=== PATIENT | male | born 1975 | race Two or more races ===

== ENCOUNTER 2017-02-28 08:14 | Inpatient (IN) | payer SELFPAY ==
[2017-02-28] VITALS (12 sets, daily range): BP systolic 117–170; BP diastolic 80–100
[~2017-02-28] VITALS: Ht 165.1 cm; Wt 86.2 kg
--- NOTE | 2017-02-28 08:17 | PHYS DOC ---
Past Medical History Past Medical History: Other Additional Past Medical Histor: ETOH ABUSE Past Surgical History: Appendectomy Alcohol Use: Heavy Drug Use: None Adult General Chief Complaint Chief Complaint: ABDOMINAL PAIN HPI HPI Patient is a 42 year old male who presents with via vomiting and abdominal pain the last 24 hours. He states he is taking metformin and stopped taking approximately 15 days ago he started drinking. He is drinking about 18 beers a day for the last 2 weeks. He states yesterday he started having abdominal pain that feels just like his previous pancreatitis that has been diagnosed with 2. His last diagnosis was partially 6 months ago. He denies any blood in his vomit, he denies any diarrhea. States the pain is in his epigastric area and radiates around. He denies any chest pain or shortness of breath. Review of Systems Review of Systems Constitutional: Denies fever or chills [] Eyes: Denies change in visual acuity, redness, or eye pain [] HENT: Denies nasal congestion or sore throat [] Respiratory: Denies cough or shortness of breath [] Cardiovascular: No additional information not addressed in HPI [] GI: Denies bloody stools or diarrhea, positive for nausea vomiting abdominal pain : Denies dysuria or hematuria [] Musculoskeletal: Denies back pain or joint pain [] Integument: Denies rash or skin lesions [] Neurologic: Denies headache, focal weakness or sensory changes [] Endocrine: Denies polyuria or polydipsia [] Current Medications Current Medications Current Medications Medications (Trade) Dose Ordered Sig/[facility] Start Time Stop Time Status Last Admin Dose Admin Dextrose/Sodium Chloride 1,000 ml @ 250 mls/hr Q4H 02/28/17 13:30 Insulin Human Regular (Novolin R Iv Drip) 150 ml @ 7.484 mls/ hr 1X ONCE 02/28/17 10:30 03/01/17 06:32 Insulin Human Regular 150 unit/ Sodium Chloride 151.5 ml @ 0 mls/hr CONT PRN PRN 02/28/17 10:30 Morphine Sulfate 4 mg PRN Q15MIN PRN 02/28/17 08:30 03/01/17 08:29 02/28/17 10:20 4 MG Ondansetron HCl 4 mg 4 mg 1X ONCE 02/28/17 09:00 02/28/17 09:01 DC 02/28/17 08:42 4 MG Potassium Chloride 100 ml @ 100 mls/hr PRN Q1HR PRN 02/28/17 10:30 Sodium Chloride 1,000 ml @ 250 mls/hr Q4H 02/28/17 13:30 Allergies Allergies Allergies Coded Allergies Type Severity Reaction Last Updated Verified No Known Drug Allergies 05/30/16 No Physical Exam Physical Exam Constitutional: Well developed, well nourished, no acute distress, non-toxic appearance. [] HENT: Normocephalic, atraumatic, bilateral external ears normal, oropharynx moist, no oral exudates, nose normal. [] Eyes: PERRLA, EOMI, conjunctiva normal, no discharge. [] Neck: Normal range of motion, no tenderness, supple, no stridor. [] Cardiovascular:Heart rate regular rhythm, no murmur [] Lungs & Thorax: Bilateral breath sounds clear to auscultation [] Abdomen: Bowel sounds normal, soft, tender palpation in the epigastric and left upper quadrant, no guarding or rebound noted, no masses, no pulsatile masses. [ ] Skin: Warm, dry, no erythema, no rash. [] Back: No tenderness, no CVA tenderness. [] Extremities: No tenderness, no cyanosis, no clubbing, ROM intact, no edema. [] Neurologic: Alert and oriented X 3, normal motor function, normal sensory function, no focal deficits noted. [] Psychologic: Affect normal, judgement normal, mood normal. [] Current Patient Data Vital Signs Vital Signs Date Time Temp Pulse Resp B/P Pulse Ox O2 Delivery O2 Flow Rate FiO2 02/28/17 10:20 18 97 Room Air 02/28/17 08:25 97.5 125 155/97 97.5 Lab Values Laboratory Tests Test 02/28/17 08:25 02/28/17 08:40 02/28/17 09:45 02/28/17 10:55 Glucose (Fingerstick) 472mg/dL (70-99) H 378mg/dL (70-99) H White Blood Count 22.7x10^3/uL (4.0-11.0) H Red Blood Count 5.53x10^6/uL (4.30-5.70) Hemoglobin 16.0g/dL (13.0-17.5) Hematocrit 47.0% (39.0-53.0) Mean Corpuscular Volume 85fL (79-100) Mean Corpuscular Hemoglobin 29pg (25-35) Mean Corpuscular Hemoglobin Concent 34g/dL (31-37) Red Cell Distribution Width 14.0% (11.5-14.5) Platelet Count 222x10^3/uL (140-400) Neutrophils (%) (Auto) % (31-73) Lymphocytes (%) (Auto) % (24-48) Monocytes (%) (Auto) % (0-9) Eosinophils (%) (Auto) % (0-3) Basophils (%) (Auto) % (0-3) Neutrophils # (Auto) x10^3uL (1.8-7.7) Lymphocytes # (Auto) x10^3/uL (1.0-4.8) Monocytes # (Auto) x10^3/uL (0.0-1.1) Eosinophils # (Auto) x10^3/uL (0.0-0.7) Basophils # (Auto) x10^3/uL (0.0-0.2) Platelet Estimate Pending Prothrombin Time 14.0SEC (11.7-14.0) Prothrombin Time INR 1.2 (0.8-1.1) H PTT 33SEC (24-38) Sodium Level 121mmol/L (136-145) L Potassium Level 3.5mmol/L (3.5-5.1) Chloride Level 78mmol/L (98-107) L Carbon Dioxide Level 5mmol/L (21-32) *L Anion Gap 38 (6-14) H Blood Urea Nitrogen 14mg/dL (8-26) Creatinine 2.0mg/dL (0.7-1.3) H Estimated GFR (Cockcroft-Gault) 36.6 Glucose Level 583mg/dL (70-99) *H Calcium Level 7.4mg/dL (8.5-10.1) L Magnesium Level 2.4mg/dL (1.8-2.4) Total Bilirubin 1.2mg/dL (0.2-1.0) H Direct Bilirubin 0.1mg/dL (0.0-0.2) Aspartate Amino Transferase (AST) 47U/L (15-37) H Alanine Aminotransferase (ALT) 88U/L (16-63) H Alkaline Phosphatase 176U/L (46-116) H Creatine Kinase 138U/L (39-308) Creatine Kinase MB (Mass) 2.3ng/mL (0.0-3.6) Creatine Kinase MB Relative Index 1.7% (0-4) Troponin I Quantitative < 0.017ng/mL (0.000-0.055) Total Protein 8.8g/dL (6.4-8.2) H Albumin 3.4g/dL (3.4-5.0) Lipase 3871U/L (73-393) H Urine Collection Type Unknown Urine Color Yellow Urine Clarity Clear Urine pH 5.5 Urine Specific [place] >=1.030 Urine Protein >=300mg/dL (NEG-TRACE) Urine Glucose (UA) >=1000mg/dL (NEG) Urine Ketones (Stick) >=80mg/dL (NEG) Urine Blood Moderate (NEG) Urine Nitrite Negative (NEG) Urine Bilirubin Negative (NEG) Urine Urobilinogen Dipstick 0.2mg/dL (0.2 mg/dL) Urine Leukocyte Esterase Negative (NEG) Urine RBC 0/HPF (0-2) Urine WBC 0/HPF (0-4) Urine Squamous Epithelial Cells Few/LPF Urine Renal Epithelial Cells Few/LPF Urine Amorphous Sediment Present/HPF Urine Bacteria 0/HPF (0-FEW) Urine Hyaline Casts Occasional/HPF Urine Mucus Slight/LPF Laboratory Tests 02/28/17 08:40 Laboratory Tests 02/28/17 08:40 EKG EKG EKG shows sinus rate of [address] elevations or T-wave inversions, normal axis, QTC 429 ms, as interpreted by me. Radiology/Procedures Radiology/Procedures [facility] [address] [place] [address] IMAGING REPORT Signed PATIENT: MARGOTH SWAIN ACCOUNT: [id number] : 1975 LOCATION: ER AGE: 42 SEX: M EXAM STATUS: REG ER ORD. PHYSICIAN: ELIDA ARMENDARIZ MD REASON: abd pain PROCEDURE: ACUTE ABDOMEN SERIES Abdomen series with chest, 3 views, 02/28/2017: History: Nausea, vomiting, abdominal pain Gas is present in large and small bowel in a nonspecific pattern. No free air seen in the abdomen. There is no evidence of organomegaly. Mild spurring is present in the spine. There are punctate radiopacities projected over the perineal region. Correlation with an old CT study suggests that these are periurethral calcifications. The heart size is normal. The lungs are clear. There is no evidence of pleural fluid. IMPRESSION: No acute abdominal abnormality is detected. DICTATED and SIGNED BY: ADEEL ESQUIVEL MD DATE: 02/28/17919 CC: ELIDA ARMENDARIZ MD; NO PCP ~ Impressions: DKA Pancreatitis Alcohol abuse Course & Med Decision Making Course & Med Decision Making Pertinent Labs and Imaging studies reviewed. (See chart for details) She presented DKA with a pH of 7.04, PCO2 of 12 bicarbonate 3.3 on his ABG. He was given 2 L of normal saline in the DKA order set was started with IV insulin. He is being admitted to the ICU under Dr. valdez. He is in critical but stable condition at this time. Dr. valdez was informed of the patient's labs, ABG , vitals, patient being started on insulin and being admitted to the ICU. Dragon Disclaimer Dragon Disclaimer This electronic medical record was generated, in whole or in part, using a voice recognition dictation system. Departure Departure Impression: Primary Impression: DKA (diabetic ketoacidosis) Disposition: ADMITTED INPATIENT Admitting Physician: Serena Valdez Condition: CRITICAL Referrals: NO PCP (PCP) ELIDA ARMENDARIZ MD Feb 28, 2017 08:17
[2017-02-28] MEDS: MORPHINE SULFATE 4 MG/ML DISP.SYRIN. IV/SQ PRN ×5 (08:44→16:08)
[2017-02-28] MEDS ORDERED: IV NORMAL SALINE 1000ML BAG 1,000 ML IV ONE ×2 (08:45→09:00)
[2017-02-28 08:58] LABS: MEAN CORPUSCULAR VOLUME 85 fL (79-100); PLATELET COUNT 222 x10^3/uL (140-400); RED BLOOD COUNT 5.53 x10^6/uL (4.30-5.70); WHITE BLOOD COUNT 22.7 x10^3/uL (4.0-11.0)
[2017-02-28] MEDS ORDERED: ONDANSETRON PF 4 MG/2 ML VIAL. IV ONE (09:00)
[2017-02-28 09:04] LABS: INR 1.2 (0.8-1.1)
[2017-02-28 09:26] LABS: MEAN CORPUSCULAR HEMOGLOBIN 29 pg (25-35); MEAN CORPUSCULAR HGB CONC 34 g/dL (31-37)
--- NOTE | 2017-02-28 09:27 | RAD ---
Abdomen series with chest, 3 views, 02/28/2017: History: Nausea, vomiting, abdominal pain Gas is present in large and small bowel in a nonspecific pattern. No free air seen in the abdomen. There is no evidence of organomegaly. Mild spurring is present in the spine. There are punctate radiopacities projected over the perineal region. Correlation with an old CT study suggests that these are periurethral calcifications. The heart size is normal. The lungs are clear. There is no evidence of pleural fluid. IMPRESSION: No acute abdominal abnormality is detected.
[2017-02-28 09:35] LABS: CKMB INDEX 1.7 % (0-4); CKMB MASS 2.3 ng/mL (0.0-3.6)
[2017-02-28 09:52] LABS: TOTAL PROTEIN 8.8 g/dL (6.4-8.2)
[2017-02-28 10:11] LABS: GFR 36.6
[2017-02-28 10:27] LABS: ALBUMIN 3.4 g/dL (3.4-5.0); CALCIUM 7.4 mg/dL (8.5-10.1); POTASSIUM 3.5 mmol/L (3.5-5.1); TOTAL BILIRUBIN 1.2 mg/dL (0.2-1.0)
[2017-02-28 10:28] LABS: DIRECT BILIRUBIN 0.1 mg/dL (0.0-0.2)
[2017-02-28 10:28] LABS: BILIRUBIN,URINE NEGATIVE (NEG); GLUCOSE,URINE >=1000 mg/dL (NEG); NITRITE,URINE NEGATIVE (NEG); PH,URINE 5.5; PROTEIN,URINE >=300 mg/dL (NEG-TRACE); UROBILINOGEN,URINE 0.2 mg/dL (0.2 mg/dL)
[2017-02-28] MEDS ORDERED: POTASSIUM CHLORIDE 10MEQ 100 ML IV PRN ×3 (10:30)
[2017-02-28] MEDS ORDERED: INSULIN,REGULAR 150 UNIT DRIP 150 ML IV ONE (10:30)
[2017-02-28] MEDS ORDERED: IV NORMAL SALINE 1000ML BAG 1,000 ML IV SCH (10:30)
[2017-02-28] MEDS ORDERED: INSULIN REGULAR VIAL 150 UNIT in 0.9 % SODIUM CHLORIDE 150ML 150 ML IV PRN (10:30)
--- NOTE | 2017-02-28 10:31 | EKG ---
[facility] [address] [place] [address] Test Date: 2017-02-28 Test Time: 08:35:08 Pat Name: MARGOTH SWAIN Department: Room: Gender: [employer]: : 1975 Requested By: ELIDA ARMENDARIZ Order Number: [id number] Reading MD: Measurements Intervals Bailey Rate: 124 P: -103 NC: 128 QRS: -121 QRSD: 80 T: 54 QT: 296 QTc: 429 Interpretive Statements SUPRAVENTRICULAR RHYTHM ABNORMAL RIGHT SUPERIOR AXIS DEVIATION R-S TRANSITION ZONE IN V LEADS DISPLACED TO THE LEFT QRS(T) CONTOUR ABNORMALITY CONSISTENT WITH INFERIOR INFARCT POSSIBLY RECENT ABNORMAL ECG RI6.01 No previous ECG available for comparison
[2017-02-28 10:43] LABS: RBC,URINE 0 /HPF (0-2); WBC,URINE 0 /HPF (0-4)
[2017-02-28 10:44] LABS: BACTERIA,URINE 0 /HPF (0-FEW); SQUAMOUS EPITHELIAL CELL,UR FEW /LPF
[2017-02-28] MEDS: IV 1/2 NORMAL SALINE 1,000 ML IV SCH ×5 (11:30→21:30)
[2017-02-28 12:36] LABS: HCO3 ABG 3 mmol/L (21-28); PO2 ABG 121 mmHg (75-108); SAT O2 ABG 98 % (92-99)
[2017-02-28 12:38] LABS: PH ABG 7.05 (7.35-7.45)
[2017-02-28 12:39] LABS: FIO2 ABG 21; PCO2 ABG < 15 mmHg (35-46)
[2017-02-28 12:48] LABS: PLT ESTIMATE ADEQUATE (ADEQUATE)
[2017-02-28 13:16] LABS: CREATININE 1.5 mg/dL (0.7-1.3); GFR 51.1; MAGNESIUM 2.2 mg/dL (1.8-2.4); PHOSPHORUS 2.6 mg/dL (2.6-4.7)
[2017-02-28] MEDS: IV NORMAL SALINE 1000ML BAG 1,000 ML IV SCH ×3 (13:30→21:30)
[2017-02-28] MEDS: IV DEXTROSE 5 %-0.45 % NACL 1,000 ML IV SCH ×3 (13:30→21:35)
[2017-02-28] MEDS: MORPHINE SULFATE 4 MG/ML DISP.SYRIN. IV PRN ×4 (13:35→22:54)
[2017-02-28] MEDS ORDERED: LORAZEPAM 2 MG/ML VIAL. IV PRN (15:00)
[2017-02-28] MEDS ORDERED: DIAZEPAM 10 MG/2 ML DISP.SYRIN. IV PRN (15:00)
--- NOTE | 2017-02-28 15:02 | PDOC1 ---
History and Physical Date of Admission Date of Admission DATE: 02/28/17 TIME: 14:53 Identification/Chief Complaint Chief Complaint abd pain, nausea, Source Source: Caregiver, Chart review, Patient History of Present Illness History of Present Illness Mr. Jain is a 42 year old male admit w. vomiting and abdominal pain the last 24 hours. 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 He has not been taking his meds for DM, and has been drinking about 18 beers a day for the last 2 weeks. He and family state that acute abdominal pain worsened yesterday and feels like pancreatitis that has been diagnosed with 2. Pain 8.10 pain mid epigastrum to back Past Medical History Cardiovascular: HTN Psych: Anxiety, Addictions Endocrine: Diabetes Family History Family History: No Significant Social History ALCOHOL: heavy Drugs: None Current Problem List Problem List Problems Medical Problems: (1) DKA (diabetic ketoacidosis) Status: Acute Problems: Current Medications Current Medications Current Medications Morphine Sulfate 4 mg PRN Q15MIN PRN IV/SQ PAIN GREATER THAN 3/10 Last administered on 02/28/17 11:52; Start 02/28/17 at 08:30; Stop 03/01/17 at 08:29 Ondansetron HCl 4 mg 4 mg 1X ONCE IV Last administered on 02/28/17 08:42; Start 02/28/17 at 09:00; Stop 02/28/17 at 09:01; Status DC Sodium Chloride 1,000 ml @ 1,000 mls/hr 1X ONCE IV Last administered on 09:44; Start 02/28/17 at 09:00; Stop 02/28/17 at 09:59; Status DC Sodium Chloride 1,000 ml @ 1,000 mls/hr 1X ONCE IV Last administered on 08:42; Start 02/28/17 at 08:45; Stop 02/28/17 at 09:44; Status DC Sodium Chloride 1,000 ml @ 1,000 mls/hr Q1H IV Last administered on 02/28/17 11:12; Start 02/28/17 at 10:30; Stop 02/28/17 at 10:33; Status DC Sodium Chloride 1,000 ml @ 500 mls/hr Q2H IV ; Start 02/28/17 at 11:30; Stop 02/28/17 at 13:30; Status DC Sodium Chloride 1,000 ml @ 250 mls/hr Q4H IV ; Start 02/28/17 at 13:30 Sodium Chloride 1,000 ml @ 250 mls/hr Q4H IV ; Start 02/28/17 at 13:30 Dextrose/Sodium Chloride 1,000 ml @ 250 mls/hr Q4H IV ; Start 02/28/17 at 13:30 Insulin Human Regular 150 unit/ Sodium Chloride 151.5 ml @ 0 mls/hr CONT PRN PRN IV PER PROTOCOL; Start 02/28/17 at 10:30 Potassium Chloride 100 ml @ 100 mls/hr PRN Q1HR PRN IV SEE COMMENTS; Start 02/28/17 at 10:30 Potassium Chloride 100 ml @ 100 mls/hr PRN Q1HR PRN IV SEE COMMENTS; Start 02/28/17 at 10:30 Potassium Chloride 100 ml @ 100 mls/hr PRN Q1HR PRN IV SEE COMMENTS; Start 02/28/17 at 10:30 Insulin Human Regular (Novolin R Iv Drip) 150 ml @ 7.484 mls/ hr 1X ONCE IV Last administered on 02/28/17 11:11; Start 02/28/17 at 10:30; Stop 03/01/17 at 06: 32 Morphine Sulfate 4 mg PRN Q2HR PRN IV PAIN Last administered on 02/28/17 13:35 ; Start 02/28/17 at 12:00 Allergies Allergies: Coded Allergies: No Known Drug Allergies (Unverified , 05/30/16) ROS General: YES: Chills, Fatigue PSYCHOLOGICAL ROS: No: Anxiety, Behavioral Disorder, Concentration difficultie , Decreased libido, Depression, Disorientation, Hallucinations, Hostility, Irritablity, Memory difficulties, Mood Swings, Obsessive thoughts, Other, Physical abuse, Sexual abuse, Sleep disturbances, Suicidal ideation Respiratory: No: Cough, Hemoptysis, Orthopnea, Other, Pleuritic Pain, SOB with excertion, Shortness of breath, Sputum Changes, Stridor, Tachypnea, Wheezing Gastrointestinal: Yes Abdominal Pain, Yes Nausea Musculoskeletal: No Gait Disturbance, No Joint Pain, No Joint Stiffness, No Joint Swelling, No Muscle Pain, No Muscular Weakness, No Other, No Pain In:, No Swelling In: Neurological: No Behavorial Changes, No Bowel/Bladder ControlChng, No Confusion , No Dizziness, No Gait Disturbance, No Headaches, No Impaired Coord/balance, No Memory Loss, No Numbness/Tingling, No Other, No Seizures, No Speech Problems , No Tremors, No Visual Changes, No Weakness Skin: No Acne, No Dry Skin, No Eczema, No Hair Changes, No Lumps, No Mole Changes, No Mottling, No Nail Changes, No Other, No Pruritus, No Rash, No Skin Lesion Changes Physical Exam General: Alert, Oriented X3, moderate distress, severe distress HEENT: Atraumatic, PERRLA, EOMI, Other (dry) Lungs: Clear to auscultation Heart: S1S2, no murmurs Abdomen: Normal bowel sounds (very tender epigastrum), Soft Extremities: No clubbing, No edema, Normal pulses Skin: No breakdown Neuro: Normal speech, Sensation intact Psych/Mental Status: Other (distress, confused) Vitals Vitals Vital Signs Date Time Temp Pulse Resp B/P Pulse Ox O2 Delivery O2 Flow Rate FiO2 02/28/17 13:35 98 02/28/17 11:52 22 Room Air 02/28/17 11:50 122 149/87 02/28/17 08:25 97.5 97.5 Labs Labs Laboratory Tests Test 02/28/17 08:25 02/28/17 08:40 02/28/17 09:45 02/28/17 09:57 Glucose (Fingerstick) 472mg/dL (70-99) White Blood Count 22.7x10^3/uL (4.0-11.0) Red Blood Count 5.53x10^6/uL (4.30-5.70) Hemoglobin 16.0g/dL (13.0-17.5) Hematocrit 47.0% (39.0-53.0) Mean Corpuscular Volume 85fL (79-100) Mean Corpuscular Hemoglobin 29pg (25-35) Mean Corpuscular Hemoglobin Concent 34g/dL (31-37) Red Cell Distribution Width 14.0% (11.5-14.5) Platelet Count 222x10^3/uL (140-400) Neutrophils (%) (Auto) % (31-73) Lymphocytes (%) (Auto) % (24-48) Monocytes (%) (Auto) % (0-9) Eosinophils (%) (Auto) % (0-3) Basophils (%) (Auto) % (0-3) Neutrophils # (Auto) x10^3uL (1.8-7.7) Lymphocytes # (Auto) x10^3/uL (1.0-4.8) Monocytes # (Auto) x10^3/uL (0.0-1.1) Eosinophils # (Auto) x10^3/uL (0.0-0.7) Basophils # (Auto) x10^3/uL (0.0-0.2) Segmented Neutrophils % 54% (35-66) Band Neutrophils % 20% (0-9) Lymphocytes % 18% (24-48) Monocytes % 8% (0-10) Platelet Estimate Adequate (ADEQUATE) Giant Platelets Few Prothrombin Time 14.0SEC (11.7-14.0) Prothromb Time International Ratio 1.2 (0.8-1.1) Activated Partial Thromboplast Time 33SEC (24-38) Sodium Level 121mmol/L (136-145) Potassium Level 3.5mmol/L (3.5-5.1) Chloride Level 78mmol/L (98-107) Carbon Dioxide Level 5mmol/L (21-32) Anion Gap 38 (6-14) Blood Urea Nitrogen 14mg/dL (8-26) Creatinine 2.0mg/dL (0.7-1.3) Estimated GFR (Cockcroft-Gault) 36.6 Glucose Level 583mg/dL (70-99) Calcium Level 7.4mg/dL (8.5-10.1) Magnesium Level 2.4mg/dL (1.8-2.4) Total Bilirubin 1.2mg/dL (0.2-1.0) Direct Bilirubin 0.1mg/dL (0.0-0.2) Aspartate Amino Transf (AST/SGOT) 47U/L (15-37) Alanine Aminotransferase (ALT/SGPT) 88U/L (16-63) Alkaline Phosphatase 176U/L (46-116) Creatine Kinase 138U/L (39-308) Creatine Kinase MB (Mass) 2.3ng/mL (0.0-3.6) Creatine Kinase MB Relative Index 1.7% (0-4) Troponin I Quantitative < 0.017ng/mL (0.000-0.055) Total Protein 8.8g/dL (6.4-8.2) Albumin 3.4g/dL (3.4-5.0) Lipase 3871U/L (73-393) Urine Collection Type Unknown Urine Color Yellow Urine Clarity Clear Urine pH 5.5 Urine Specific [place] >=1.030 Urine Protein >=300mg/dL (NEG-TRACE) Urine Glucose (UA) >=1000mg/dL (NEG) Urine Ketones (Stick) >=80mg/dL (NEG) Urine Blood Moderate (NEG) Urine Nitrite Negative (NEG) Urine Bilirubin Negative (NEG) Urine Urobilinogen Dipstick 0.2mg/dL (0.2 mg/dL) Urine Leukocyte Esterase Negative (NEG) Urine RBC 0/HPF (0-2) Urine WBC 0/HPF (0-4) Urine Squamous Epithelial Cells Few/LPF Urine Renal Epithelial Cells Few/LPF Urine Amorphous Sediment Present/HPF Urine Bacteria 0/HPF (0-FEW) Urine Hyaline Casts Occasional/HPF Urine Mucus Slight/LPF O2 Saturation 98% (92-99) Arterial Blood pH 7.05 (7.35-7.45) Arterial Blood pCO2 at Patient Temp < 15mmHg (35-46) Arterial Blood pO2 at Patient Temp 121mmHg (75-108) Arterial Blood HCO3 3mmol/L (21-28) Arterial Blood Base Excess -25mmol/L (-3-3) FiO2 21 Test 02/28/17 10:55 02/28/17 12:15 02/28/17 12:25 02/28/17 13:22 Glucose (Fingerstick) 378mg/dL (70-99) 343mg/dL (70-99) 289mg/dL (70-99) Sodium Level 139mmol/L (136-145) Potassium Level 4.0mmol/L (3.5-5.1) Chloride Level 101mmol/L (98-107) Carbon Dioxide Level 8mmol/L (21-32) Anion Gap 30 (6-14) Blood Urea Nitrogen 14mg/dL (8-26) Creatinine 1.5mg/dL (0.7-1.3) Estimated GFR (Cockcroft-Gault) 51.1 Glucose Level 365mg/dL (70-99) Calcium Level 8.0mg/dL (8.5-10.1) Phosphorus Level 2.6mg/dL (2.6-4.7) Magnesium Level 2.2mg/dL (1.8-2.4) Laboratory Tests Test 02/28/17 08:25 02/28/17 08:40 02/28/17 09:45 02/28/17 09:57 Glucose (Fingerstick) 472mg/dL (70-99) White Blood Count 22.7x10^3/uL (4.0-11.0) Red Blood Count 5.53x10^6/uL (4.30-5.70) Hemoglobin 16.0g/dL (13.0-17.5) Hematocrit 47.0% (39.0-53.0) Mean Corpuscular Volume 85fL (79-100) Mean Corpuscular Hemoglobin 29pg (25-35) Mean Corpuscular Hemoglobin Concent 34g/dL (31-37) Red Cell Distribution Width 14.0% (11.5-14.5) Platelet Count 222x10^3/uL (140-400) Neutrophils (%) (Auto) % (31-73) Lymphocytes (%) (Auto) % (24-48) Monocytes (%) (Auto) % (0-9) Eosinophils (%) (Auto) % (0-3) Basophils (%) (Auto) % (0-3) Neutrophils # (Auto) x10^3uL (1.8-7.7) Lymphocytes # (Auto) x10^3/uL (1.0-4.8) Monocytes # (Auto) x10^3/uL (0.0-1.1) Eosinophils # (Auto) x10^3/uL (0.0-0.7) Basophils # (Auto) x10^3/uL (0.0-0.2) Segmented Neutrophils % 54% (35-66) Band Neutrophils % 20% (0-9) Lymphocytes % 18% (24-48) Monocytes % 8% (0-10) Platelet Estimate Adequate (ADEQUATE) Giant Platelets Few Prothrombin Time 14.0SEC (11.7-14.0) Prothromb Time International Ratio 1.2 (0.8-1.1) Activated Partial Thromboplast Time 33SEC (24-38) Sodium Level 121mmol/L (136-145) Potassium Level 3.5mmol/L (3.5-5.1) Chloride Level 78mmol/L (98-107) Carbon Dioxide Level 5mmol/L (21-32) Anion Gap 38 (6-14) Blood Urea Nitrogen 14mg/dL (8-26) Creatinine 2.0mg/dL (0.7-1.3) Estimated GFR (Cockcroft-Gault) 36.6 Glucose Level 583mg/dL (70-99) Calcium Level 7.4mg/dL (8.5-10.1) Magnesium Level 2.4mg/dL (1.8-2.4) Total Bilirubin 1.2mg/dL (0.2-1.0) Direct Bilirubin 0.1mg/dL (0.0-0.2) Aspartate Amino Transf (AST/SGOT) 47U/L (15-37) Alanine Aminotransferase (ALT/SGPT) 88U/L (16-63) Alkaline Phosphatase 176U/L (46-116) Creatine Kinase 138U/L (39-308) Creatine Kinase MB (Mass) 2.3ng/mL (0.0-3.6) Creatine Kinase MB Relative Index 1.7% (0-4) Troponin I Quantitative < 0.017ng/mL (0.000-0.055) Total Protein 8.8g/dL (6.4-8.2) Albumin 3.4g/dL (3.4-5.0) Lipase 3871U/L (73-393) Urine Collection Type Unknown Urine Color Yellow Urine Clarity Clear Urine pH 5.5 Urine Specific [place] >=1.030 Urine Protein >=300mg/dL (NEG-TRACE) Urine Glucose (UA) >=1000mg/dL (NEG) Urine Ketones (Stick) >=80mg/dL (NEG) Urine Blood Moderate (NEG) Urine Nitrite Negative (NEG) Urine Bilirubin Negative (NEG) Urine Urobilinogen Dipstick 0.2mg/dL (0.2 mg/dL) Urine Leukocyte Esterase Negative (NEG) Urine RBC 0/HPF (0-2) Urine WBC 0/HPF (0-4) Urine Squamous Epithelial Cells Few/LPF Urine Renal Epithelial Cells Few/LPF Urine Amorphous Sediment Present/HPF Urine Bacteria 0/HPF (0-FEW) Urine Hyaline Casts Occasional/HPF Urine Mucus Slight/LPF O2 Saturation 98% (92-99) Arterial Blood pH 7.05 (7.35-7.45) Arterial Blood pCO2 at Patient Temp < 15mmHg (35-46) Arterial Blood pO2 at Patient Temp 121mmHg (75-108) Arterial Blood HCO3 3mmol/L (21-28) Arterial Blood Base Excess -25mmol/L (-3-3) FiO2 21 Test 02/28/17 10:55 02/28/17 12:15 02/28/17 12:25 02/28/17 13:22 Glucose (Fingerstick) 378mg/dL (70-99) 343mg/dL (70-99) 289mg/dL (70-99) Sodium Level 139mmol/L (136-145) Potassium Level 4.0mmol/L (3.5-5.1) Chloride Level 101mmol/L (98-107) Carbon Dioxide Level 8mmol/L (21-32) Anion Gap 30 (6-14) Blood Urea Nitrogen 14mg/dL (8-26) Creatinine 1.5mg/dL (0.7-1.3) Estimated GFR (Cockcroft-Gault) 51.1 Glucose Level 365mg/dL (70-99) Calcium Level 8.0mg/dL (8.5-10.1) Phosphorus Level 2.6mg/dL (2.6-4.7) Magnesium Level 2.2mg/dL (1.8-2.4) VTE Prophylaxis Ordered VTE Prophylaxis Devices: No VTE Pharmacological Prophylaxi: Yes Assessment/Plan Assessment/Plan Acute alcoholic pancreatitis DKA EtOHism, banana bag and CIWS score and schedand PRN acute renal failure, vasomotor nephropathy noncompliance meds marked acidosis, anion gap, EtOH level pending ICU admit, 31 min STEWART BELL MD Feb 28, 2017 15:02
--- NOTE | 2017-02-28 15:58 | PDOC2 ---
GI CONSULT Reason For Consult: Pancreatitis HPI: HPI: History from chart, staff, family (son provides translation, and sister also present). Admitted through ER in [facility], additional h/o alcoholic pancreatitis w/ last episode within the past 6 months. At that time was evaluated at [facility] and had a CT scan which was apparently concerning for an ulcer. He was treated w/ a pill for 30 days (son thinks pantoprazole sounds familiar). EGD was recommended as an outpatient but he could not afford this (uninsured). Family denies reflux/heartburn but reports frequent bloating. Also takes a few Advil QD for body aches. After his last episode of pancreatitis, he stopped drinking for a few months but restarted two weeks ago. Has been drinking about 18 beers daily and also stopped taking his metformin. Had pancreatitis symptoms recur yesterday w/ epigastric pain radiating to his back associated w/ n/v. His has concern for hematemesis; she saw blood in his mouth and on his teeth overnight. No diarrhea, constipation, hematochezia, or melena. Labs: WBC 22.7, glucose 583, Cr 2 (now 1.5), bili 1.2, AST 57, ALT 88, Alk Phos 176, lipase 3871. Hgb and BUN WNL. Acute abd series unrevealing. PMH: PMH: HTN, DM, pancreatitis, appendectomy Social History: ALCOHOL: heavy (18 beers daily ([place] or [place])) Drugs: None ROS: Asleep during my interview - as per family: GEN: Denies fevers, chills, sweats CV: Denies chest pain RESP: Denies shortness of air, cough GI: Per HPI ENDO: Denies weight changes MSK: +bodyaches VItals: Vitals: Vital Signs Date Time Temp Pulse Resp B/P Pulse Ox O2 Delivery O2 Flow Rate FiO2 02/28/17 13:35 98 02/28/17 11:52 22 Room Air 02/28/17 11:50 122 149/87 02/28/17 08:25 97.5 97.5 Labs: Labs: Laboratory Tests Test 02/28/17 08:25 02/28/17 08:40 02/28/17 09:45 02/28/17 09:57 Glucose (Fingerstick) 472mg/dL (70-99) White Blood Count 22.7x10^3/uL (4.0-11.0) Red Blood Count 5.53x10^6/uL (4.30-5.70) Hemoglobin 16.0g/dL (13.0-17.5) Hematocrit 47.0% (39.0-53.0) Mean Corpuscular Volume 85fL (79-100) Mean Corpuscular Hemoglobin 29pg (25-35) Mean Corpuscular Hemoglobin Concent 34g/dL (31-37) Red Cell Distribution Width 14.0% (11.5-14.5) Platelet Count 222x10^3/uL (140-400) Neutrophils (%) (Auto) % (31-73) Lymphocytes (%) (Auto) % (24-48) Monocytes (%) (Auto) % (0-9) Eosinophils (%) (Auto) % (0-3) Basophils (%) (Auto) % (0-3) Neutrophils # (Auto) x10^3uL (1.8-7.7) Lymphocytes # (Auto) x10^3/uL (1.0-4.8) Monocytes # (Auto) x10^3/uL (0.0-1.1) Eosinophils # (Auto) x10^3/uL (0.0-0.7) Basophils # (Auto) x10^3/uL (0.0-0.2) Segmented Neutrophils % 54% (35-66) Band Neutrophils % 20% (0-9) Lymphocytes % 18% (24-48) Monocytes % 8% (0-10) Platelet Estimate Adequate (ADEQUATE) Giant Platelets Few Prothrombin Time 14.0SEC (11.7-14.0) Prothromb Time International Ratio 1.2 (0.8-1.1) Activated Partial Thromboplast Time 33SEC (24-38) Sodium Level 121mmol/L (136-145) Potassium Level 3.5mmol/L (3.5-5.1) Chloride Level 78mmol/L (98-107) Carbon Dioxide Level 5mmol/L (21-32) Anion Gap 38 (6-14) Blood Urea Nitrogen 14mg/dL (8-26) Creatinine 2.0mg/dL (0.7-1.3) Estimated GFR (Cockcroft-Gault) 36.6 Glucose Level 583mg/dL (70-99) Calcium Level 7.4mg/dL (8.5-10.1) Magnesium Level 2.4mg/dL (1.8-2.4) Total Bilirubin 1.2mg/dL (0.2-1.0) Direct Bilirubin 0.1mg/dL (0.0-0.2) Aspartate Amino Transf (AST/SGOT) 47U/L (15-37) Alanine Aminotransferase (ALT/SGPT) 88U/L (16-63) Alkaline Phosphatase 176U/L (46-116) Creatine Kinase 138U/L (39-308) Creatine Kinase MB (Mass) 2.3ng/mL (0.0-3.6) Creatine Kinase MB Relative Index 1.7% (0-4) Troponin I Quantitative < 0.017ng/mL (0.000-0.055) Total Protein 8.8g/dL (6.4-8.2) Albumin 3.4g/dL (3.4-5.0) Lipase 3871U/L (73-393) Urine Collection Type Unknown Urine Color Yellow Urine Clarity Clear Urine pH 5.5 Urine Specific [place] >=1.030 Urine Protein >=300mg/dL (NEG-TRACE) Urine Glucose (UA) >=1000mg/dL (NEG) Urine Ketones (Stick) >=80mg/dL (NEG) Urine Blood Moderate (NEG) Urine Nitrite Negative (NEG) Urine Bilirubin Negative (NEG) Urine Urobilinogen Dipstick 0.2mg/dL (0.2 mg/dL) Urine Leukocyte Esterase Negative (NEG) Urine RBC 0/HPF (0-2) Urine WBC 0/HPF (0-4) Urine Squamous Epithelial Cells Few/LPF Urine Renal Epithelial Cells Few/LPF Urine Amorphous Sediment Present/HPF Urine Bacteria 0/HPF (0-FEW) Urine Hyaline Casts Occasional/HPF Urine Mucus Slight/LPF O2 Saturation 98% (92-99) Arterial Blood pH 7.05 (7.35-7.45) Arterial Blood pCO2 at Patient Temp < 15mmHg (35-46) Arterial Blood pO2 at Patient Temp 121mmHg (75-108) Arterial Blood HCO3 3mmol/L (21-28) Arterial Blood Base Excess -25mmol/L (-3-3) FiO2 21 Test 02/28/17 10:55 02/28/17 12:15 02/28/17 12:25 02/28/17 13:22 Glucose (Fingerstick) 378mg/dL (70-99) 343mg/dL (70-99) 289mg/dL (70-99) Sodium Level 139mmol/L (136-145) Potassium Level 4.0mmol/L (3.5-5.1) Chloride Level 101mmol/L (98-107) Carbon Dioxide Level 8mmol/L (21-32) Anion Gap 30 (6-14) Blood Urea Nitrogen 14mg/dL (8-26) Creatinine 1.5mg/dL (0.7-1.3) Estimated GFR (Cockcroft-Gault) 51.1 Glucose Level 365mg/dL (70-99) Calcium Level 8.0mg/dL (8.5-10.1) Phosphorus Level 2.6mg/dL (2.6-4.7) Magnesium Level 2.2mg/dL (1.8-2.4) Allergies: Coded Allergies: No Known Drug Allergies (Unverified , 05/30/16) Medications: Current Medications Medications (Trade) Dose Ordered Sig/Wendy Route PRN Reason Start Time Stop Time Status Last Admin Dose Admin Morphine Sulfate 4 mg PRN Q15MIN PRN IV/SQ PAIN GREATER THAN 3/10 02/28/17 08:30 03/01/17 08:29 02/28/17 11:52 Ondansetron HCl 4 mg 4 mg 1X ONCE IV 02/28/17 09:00 02/28/17 09:01 DC 02/28/17 08:42 Sodium Chloride 1,000 ml @ 1,000 mls/hr 1X ONCE IV 02/28/17 09:00 02/28/17 09:59 DC 02/28/17 09:44 Sodium Chloride 1,000 ml @ 1,000 mls/hr 1X ONCE IV 02/28/17 08:45 02/28/17 09:44 DC 02/28/17 08:42 Sodium Chloride 1,000 ml @ 1,000 mls/hr Q1H IV 02/28/17 10:30 02/28/17 10:33 DC 02/28/17 11:12 Insulin Human Regular (Novolin R Iv Drip) 150 ml @ 7.484 mls/ hr 1X ONCE IV 02/28/17 10:30 03/01/17 06:32 02/28/17 11:11 Morphine Sulfate 4 mg PRN Q2HR PRN IV PAIN 02/28/17 12:00 02/28/17 13:35 Imaging: Imaging: Acute Abd Series IMPRESSION: No acute abdominal abnormality is detected. PE: GEN: NAD HEENT: atraumatic LUNGS: clear anteriorly HEART: tachycardic ABD: BS+, moans w/ palpation diffusely EXTREMITY: no edema SKIN: no rashes, no jaundice NEURO/PSYCH: asleep A/P: A/P: DKA -stopped metformin ~2 weeks ago Recurrent pancreatitis -family reports 3rd occurrence (last within 6 months at [place]) -related to alcohol -lipase 3871 Alcoholism -started drinking again 2 weeks ago, 18 beers daily Epigastric pain, n/v, bloating -?hematemesis ( reports seeing blood in his mouth) NSAID use, h/o abnormal CT abd -a few Advil daily for body aches -family reports previous CT concerning for PUD -could not afford EGD, seems took a PPI x 30 days CRC screen -average risk -- Will check CT A/P (w/o contrast w/ Cr 1.5). NPO. Will also add IV PPI. Needs abstinence from alcohol. RAYA CULLEN Feb 28, 2017 15:58
[2017-02-28] MEDS ORDERED: MULTIVIT INFUSN,ADULT 4,VIT K 10 ML, THIAMINE 100 MG, FOLIC ACID 1 MG in IV NORMAL SALI... IV ONE (16:00)
--- NOTE | 2017-02-28 17:18 | RAD ---
CT of the abdomen and pelvis without contrast, 02/28/2017: History: Alcoholic pancreatitis, elevated lipase level Noncontrast scans were obtained as requested. Comparison is made to a study from 06/01/2013. The unopacified liver is unremarkable. The gallbladder is distended. No radiopaque gallstones are seen. There is moderate streaky increased density in the peripancreatic fat extending into the mesentery and anterior pararenal spaces bilaterally. The appearance is that of inflammation due to acute pancreatitis. No well-defined discrete peripancreatic fluid collection is evident. The study is limited by the lack of IV or oral contrast material. The spleen is unremarkable. The unopacified kidneys show no abnormality. A [place] catheter is present in the urinary bladder. The bladder [place] are diffusely thickened, probably accentuated by its nondistended state. A few diverticula are present in the sigmoid colon. The large and small bowel loops are not dilated. The stomach is moderately distended with fluid. No free air is evident in the abdomen or pelvis. No significant ascites is delineated. IMPRESSION: 1. Extensive peripancreatic inflammation compatible with acute pancreatitis. 2. Moderate associated distention of the stomach with fluid. PQRS Compliance Statement: One or more of the following individualized dose reduction techniques were utilized for this examination: 1. Automated exposure control 2. Adjustment of the mA and/or kV according to patient size 3. Use of iterative reconstruction technique
[2017-02-28 18:01] LABS: CALCIUM 8.4 mg/dL (8.5-10.1); CREATININE 1.4 mg/dL (0.7-1.3); GFR 55.3; PHOSPHORUS 1.6 mg/dL (2.6-4.7); POTASSIUM 3.2 mmol/L (3.5-5.1)
[2017-02-28] MEDS: PANTOPRAZOLE IV PUSH 40 MG VIAL. IVP SCH (18:33)
[2017-02-28] MEDS ORDERED: SODIUM PHOSPHATE 20 MMOL in IV DEXTROSE 5% 250 ML IV PRN (19:30)
[2017-02-28] MEDS: POTASSIUM CHLORIDE 10MEQ 100 ML IV SCH ×4 (19:34→22:43)
[2017-02-28] MEDS ORDERED: METF10002 PO (20:36)
[2017-02-28] MEDS ORDERED: CAPT12.52 PO (20:38)
[2017-02-28] MEDS ORDERED: FAMO20TA5 PO (20:38)
[2017-02-28] MEDS ORDERED: ACETAMINOPHEN 500 MG TABLET PO PRN (20:45)
[2017-02-28] MEDS ORDERED: SODIUM BICARB ADULT 8.4% 50 MEQ/50 ML DISP.SYRIN. IV ONE (21:00)
[2017-02-28] MEDS: OCTREOTIDE 100 MCG/ML VIAL SQ SCH (21:34)
[2017-02-28] MEDS: ONDANSETRON PF 4 MG/2 ML VIAL. IV PRN (22:54)
[2017-03-01] VITALS (12 sets, daily range): BP systolic 106–128; BP diastolic 67–93
[2017-03-01] MEDS: IV 1/2 NORMAL SALINE 1,000 ML IV SCH ×2 (01:30→05:30)
[2017-03-01] MEDS: IV NORMAL SALINE 1000ML BAG 1,000 ML IV SCH ×4 (01:30→16:50)
[2017-03-01] MEDS: MORPHINE SULFATE 4 MG/ML DISP.SYRIN. IV PRN ×4 (01:32→18:28)
[2017-03-01 01:55] LABS: CREATININE 1.4 mg/dL (0.7-1.3); GFR 55.3
[2017-03-01 01:57] LABS: MAGNESIUM 1.6 mg/dL (1.8-2.4); PHOSPHORUS 0.6 mg/dL (2.6-4.7)
[2017-03-01] MEDS: IV DEXTROSE 5 %-0.45 % NACL 1,000 ML IV SCH ×2 (02:04→05:30)
[2017-03-01 02:07] LABS: POTASSIUM 2.4 mmol/L (3.5-5.1)
[2017-03-01] MEDS ORDERED: SODIUM PHOSPHATE 40 MMOL in IV NORMAL SALINE 500ML BAG 500 ML IV PRN (02:30)
[2017-03-01] MEDS: MAGNESIUM SULFATE 4GM 100 ML IV SCH ×2 (02:36→08:21)
[2017-03-01] MEDS: POTASSIUM CHLORIDE 10MEQ 100 ML IV SCH ×10 (02:39→14:45)
[2017-03-01 05:37] LABS: BASO % 0 % (0-3); EOS % 0 % (0-3); HEMATOCRIT 39.3 % (39.0-53.0); LYMPH # 0.8 x10^3/uL (1.0-4.8); LYMPH % 7 % (24-48); MEAN CORPUSCULAR VOLUME 82 fL (79-100); MONO % 5 % (0-9); NEUT % 87 % (31-73); PLATELET COUNT 135 x10^3/uL (140-400); RED BLOOD COUNT 4.83 x10^6/uL (4.30-5.70); RED CELL DISTRIBUTION WIDTH 13.3 % (11.5-14.5); WHITE BLOOD COUNT 11.1 x10^3/uL (4.0-11.0)
[2017-03-01] MEDS ORDERED: IV DEXTROSE 5% - 0.9 % NACL 1,000 ML IV SCH (05:45)
[2017-03-01 05:50] LABS: PROTHROMBIN TIME PATIENT 12.4 SEC (11.7-14.0)
[2017-03-01] MEDS: OCTREOTIDE 100 MCG/ML VIAL SQ SCH ×3 (05:58→21:45)
[2017-03-01 06:12] LABS: HEMOGLOBIN 13.1 g/dL (13.0-17.5); MEAN CORPUSCULAR HEMOGLOBIN 27 pg (25-35); MEAN CORPUSCULAR HGB CONC 33 g/dL (31-37)
[2017-03-01 06:15] LABS: PHOSPHORUS 1.1 mg/dL (2.6-4.7)
[2017-03-01 06:16] LABS: ALBUMIN 2.3 g/dL (3.4-5.0); ALBUMIN/GLOBULIN RATIO 0.6 (1.0-1.7); CREATININE 1.4 mg/dL (0.7-1.3); GFR 55.3; TOTAL BILIRUBIN 0.6 mg/dL (0.2-1.0); TOTAL PROTEIN 5.9 g/dL (6.4-8.2)
[2017-03-01 06:19] LABS: POTASSIUM 2.3 mmol/L (3.5-5.1)
[2017-03-01 06:37] LABS: PLT ESTIMATE ADEQUATE (ADEQUATE)
[2017-03-01] MEDS: THIAMINE 100 MG TABLET. PO SCH (08:20)
[2017-03-01] MEDS: PANTOPRAZOLE IV PUSH 40 MG VIAL. IVP SCH (08:20)
[2017-03-01] MEDS: MULTIVITAMIN with MINERAL TABLET. PO SCH (08:20)
[2017-03-01] MEDS: FOLIC ACID 1 MG TABLET. PO SCH (08:20)
--- NOTE | 2017-03-01 09:37 | PDOC ---
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 Thormbocytopenia mild GAp metabolic acidosis HYpokalemia with hypophosphatemia Abd pain History of Present Illness History of Present Illness GAp closed this AM only HAd to give bicarb last night bec of bicarb < 7, pH 7.0 though Still cont to have epigastric and back pains STill requiring high doses insulin, currently at 18mcgs per hr On D5 IVF at 250cc/hr Only on metformin at home SOme nausea but no emesis Looks uncomfortable MOrphine 4 mgs IV q2 not enough LIpase even higher today 4K from 3K on admission BIcarb only 15 still PLAn: WOULD CONTINUE iNSULIN gtt even if gap closed to aid in resolution of pancreatitis Keep NPO Keep in ICU Dc dextrose iVF, start NS at 150cc/hr instead Bicarb 50 meqs x 1 now PPI iV NAusea meds Replace Elytes STart K phosph IV (phosp markedly low) BMP in AM DVT prophy Rpt lipase flavio COunseled on his etoh FAmily at bedside COnt CIWA. banana bag HOld metformin for now Dw GI and [employer] CC 32 mins Vitals Vitals Vital Signs Date Time Temp Pulse Resp B/P Pulse Ox O2 Delivery O2 Flow Rate FiO2 03/01/17 08:20 95 Room Air 03/01/17 06:25 19 03/01/17 06:00 122 115/69 03/01/17 04:00 100.9 100.9 Physical Exam General: Alert, Oriented X3, moderate distress, severe distress Abdomen: Normal bowel sounds (very tender epigastrum), Soft Extremities: No clubbing, No edema, Normal pulses Skin: No breakdown Labs LABS Laboratory Tests Test 02/28/17 09:45 02/28/17 09:57 02/28/17 10:55 02/28/17 12:15 Urine Collection Type Unknown Urine Color Yellow Urine Clarity Clear Urine pH 5.5 Urine Specific Henefer >=1.030 Urine Protein >=300mg/dL (NEG-TRACE) Urine Glucose (UA) >=1000mg/dL (NEG) Urine Ketones (Stick) >=80mg/dL (NEG) Urine Blood Moderate (NEG) Urine Nitrite Negative (NEG) Urine Bilirubin Negative (NEG) Urine Urobilinogen Dipstick 0.2mg/dL (0.2 mg/dL) Urine Leukocyte Esterase Negative (NEG) Urine RBC 0/HPF (0-2) Urine WBC 0/HPF (0-4) Urine Squamous Epithelial Cells Few/LPF Urine Renal Epithelial Cells Few/LPF Urine Amorphous Sediment Present/HPF Urine Bacteria 0/HPF (0-FEW) Urine Hyaline Casts Occasional/HPF Urine Mucus Slight/LPF O2 Saturation 98% (92-99) Arterial Blood pH 7.05 (7.35-7.45) Arterial Blood pCO2 at Patient Temp < 15mmHg (35-46) Arterial Blood pO2 at Patient Temp 121mmHg (75-108) Arterial Blood HCO3 3mmol/L (21-28) Arterial Blood Base Excess -25mmol/L (-3-3) FiO2 21 Glucose (Fingerstick) 378mg/dL (70-99) 343mg/dL (70-99) Test 02/28/17 12:25 02/28/17 13:22 02/28/17 14:31 02/28/17 15:59 Sodium Level 139mmol/L (136-145) Potassium Level 4.0mmol/L (3.5-5.1) Chloride Level 101mmol/L (98-107) Carbon Dioxide Level 8mmol/L (21-32) Anion Gap 30 (6-14) Blood Urea Nitrogen 14mg/dL (8-26) Creatinine 1.5mg/dL (0.7-1.3) Estimated GFR (Cockcroft-Gault) 51.1 Glucose Level 365mg/dL (70-99) Calcium Level 8.0mg/dL (8.5-10.1) Phosphorus Level 2.6mg/dL (2.6-4.7) Magnesium Level 2.2mg/dL (1.8-2.4) Glucose (Fingerstick) 289mg/dL (70-99) 249mg/dL (70-99) 190mg/dL (70-99) Test 02/28/17 16:20 02/28/17 17:06 02/28/17 18:37 02/28/17 19:44 Sodium Level 139mmol/L (136-145) Potassium Level 3.2mmol/L (3.5-5.1) Chloride Level 103mmol/L (98-107) Carbon Dioxide Level 7mmol/L (21-32) Anion Gap 29 (6-14) Blood Urea Nitrogen 13mg/dL (8-26) Creatinine 1.4mg/dL (0.7-1.3) Estimated GFR (Cockcroft-Gault) 55.3 Glucose Level 210mg/dL (70-99) Calcium Level 8.4mg/dL (8.5-10.1) Phosphorus Level 1.6mg/dL (2.6-4.7) Magnesium Level 2.0mg/dL (1.8-2.4) Glucose (Fingerstick) 165mg/dL (70-99) 143mg/dL (70-99) 163mg/dL (70-99) Test 02/28/17 20:48 02/28/17 21:54 02/28/17 23:00 03/01/17 00:23 Glucose (Fingerstick) 202mg/dL (70-99) 217mg/dL (70-99) 208mg/dL (70-99) 203mg/dL (70-99) Test 03/01/17 01:00 03/01/17 01:27 03/01/17 02:36 03/01/17 03:43 Sodium Level 134mmol/L (136-145) Potassium Level 2.4mmol/L (3.5-5.1) Chloride Level 102mmol/L (98-107) Carbon Dioxide Level 12mmol/L (21-32) Anion Gap 20 (6-14) Blood Urea Nitrogen 9mg/dL (8-26) Creatinine 1.4mg/dL (0.7-1.3) Estimated GFR (Cockcroft-Gault) 55.3 Glucose Level 235mg/dL (70-99) Calcium Level 8.0mg/dL (8.5-10.1) Phosphorus Level 0.6mg/dL (2.6-4.7) Magnesium Level 1.6mg/dL (1.8-2.4) Glucose (Fingerstick) 215mg/dL (70-99) 191mg/dL (70-99) 199mg/dL (70-99) Test 03/01/17 04:46 03/01/17 05:00 03/01/17 05:50 Glucose (Fingerstick) 188mg/dL (70-99) 187mg/dL (70-99) White Blood Count 11.1x10^3/uL (4.0-11.0) Red Blood Count 4.83x10^6/uL (4.30-5.70) Hemoglobin 13.1g/dL (13.0-17.5) Hematocrit 39.3% (39.0-53.0) Mean Corpuscular Volume 82fL (79-100) Mean Corpuscular Hemoglobin 27pg (25-35) Mean Corpuscular Hemoglobin Concent 33g/dL (31-37) Red Cell Distribution Width 13.3% (11.5-14.5) Platelet Count 135x10^3/uL (140-400) Neutrophils (%) (Auto) 87% (31-73) Lymphocytes (%) (Auto) 7% (24-48) Monocytes (%) (Auto) 5% (0-9) Eosinophils (%) (Auto) 0% (0-3) Basophils (%) (Auto) 0% (0-3) Neutrophils # (Auto) 9.7x10^3uL (1.8-7.7) Lymphocytes # (Auto) 0.8x10^3/uL (1.0-4.8) Monocytes # (Auto) 0.6x10^3/uL (0.0-1.1) Eosinophils # (Auto) 0.0x10^3/uL (0.0-0.7) Basophils # (Auto) 0.0x10^3/uL (0.0-0.2) Segmented Neutrophils % 74% (35-66) Band Neutrophils % 18% (0-9) Lymphocytes % 6% (24-48) Monocytes % 2% (0-10) Platelet Estimate Adequate (ADEQUATE) Prothrombin Time 12.4SEC (11.7-14.0) Prothromb Time International Ratio 1.0 (0.8-1.1) Sodium Level 128mmol/L (136-145) Potassium Level 2.3mmol/L (3.5-5.1) Chloride Level 103mmol/L (98-107) Carbon Dioxide Level 15mmol/L (21-32) Anion Gap 10 (6-14) Blood Urea Nitrogen 8mg/dL (8-26) Creatinine 1.4mg/dL (0.7-1.3) Estimated GFR (Cockcroft-Gault) 55.3 BUN/Creatinine Ratio 6 (6-20) Glucose Level 207mg/dL (70-99) Calcium Level 8.0mg/dL (8.5-10.1) Phosphorus Level 1.1mg/dL (2.6-4.7) Magnesium Level 2.0mg/dL (1.8-2.4) Total Bilirubin 0.6mg/dL (0.2-1.0) Aspartate Amino Transf (AST/SGOT) 35U/L (15-37) Alanine Aminotransferase (ALT/SGPT) 41U/L (16-63) Alkaline Phosphatase 105U/L (46-116) Total Protein 5.9g/dL (6.4-8.2) Albumin 2.3g/dL (3.4-5.0) Albumin/Globulin Ratio 0.6 (1.0-1.7) Lipase 4174U/L (73-393) Review of Systems Review of Systems nausea, abd pain, no diarrhea or emesis Assessment and Plan Assessmemt and Plan Problems Medical Problems: (1) DKA (diabetic ketoacidosis) Status: Acute Problems: Comment Review of Relevant I have reviewed the following items sharla (where applicable) has been applied. Labs Laboratory Tests Test 02/28/17 08:25 02/28/17 08:40 02/28/17 09:45 02/28/17 09:57 Glucose (Fingerstick) 472mg/dL (70-99) White Blood Count 22.7x10^3/uL (4.0-11.0) Red Blood Count 5.53x10^6/uL (4.30-5.70) Hemoglobin 16.0g/dL (13.0-17.5) Hematocrit 47.0% (39.0-53.0) Mean Corpuscular Volume 85fL (79-100) Mean Corpuscular Hemoglobin 29pg (25-35) Mean Corpuscular Hemoglobin Concent 34g/dL (31-37) Red Cell Distribution Width 14.0% (11.5-14.5) Platelet Count 222x10^3/uL (140-400) Neutrophils (%) (Auto) % (31-73) Lymphocytes (%) (Auto) % (24-48) Monocytes (%) (Auto) % (0-9) Eosinophils (%) (Auto) % (0-3) Basophils (%) (Auto) % (0-3) Neutrophils # (Auto) x10^3uL (1.8-7.7) Lymphocytes # (Auto) x10^3/uL (1.0-4.8) Monocytes # (Auto) x10^3/uL (0.0-1.1) Eosinophils # (Auto) x10^3/uL (0.0-0.7) Basophils # (Auto) x10^3/uL (0.0-0.2) Segmented Neutrophils % 54% (35-66) Band Neutrophils % 20% (0-9) Lymphocytes % 18% (24-48) Monocytes % 8% (0-10) Platelet Estimate Adequate (ADEQUATE) Giant Platelets Few Prothrombin Time 14.0SEC (11.7-14.0) Prothromb Time International Ratio 1.2 (0.8-1.1) Activated Partial Thromboplast Time 33SEC (24-38) Sodium Level 121mmol/L (136-145) Potassium Level 3.5mmol/L (3.5-5.1) Chloride Level 78mmol/L (98-107) Carbon Dioxide Level 5mmol/L (21-32) Anion Gap 38 (6-14) Blood Urea Nitrogen 14mg/dL (8-26) Creatinine 2.0mg/dL (0.7-1.3) Estimated GFR (Cockcroft-Gault) 36.6 Glucose Level 583mg/dL (70-99) Calcium Level 7.4mg/dL (8.5-10.1) Magnesium Level 2.4mg/dL (1.8-2.4) Total Bilirubin 1.2mg/dL (0.2-1.0) Direct Bilirubin 0.1mg/dL (0.0-0.2) Aspartate Amino Transf (AST/SGOT) 47U/L (15-37) Alanine Aminotransferase (ALT/SGPT) 88U/L (16-63) Alkaline Phosphatase 176U/L (46-116) Creatine Kinase 138U/L (39-308) Creatine Kinase MB (Mass) 2.3ng/mL (0.0-3.6) Creatine Kinase MB Relative Index 1.7% (0-4) Troponin I Quantitative < 0.017ng/mL (0.000-0.055) Total Protein 8.8g/dL (6.4-8.2) Albumin 3.4g/dL (3.4-5.0) Lipase 3871U/L (73-393) Urine Collection Type Unknown Urine Color Yellow Urine Clarity Clear Urine pH 5.5 Urine Specific Henefer >=1.030 Urine Protein >=300mg/dL (NEG-TRACE) Urine Glucose (UA) >=1000mg/dL (NEG) Urine Ketones (Stick) >=80mg/dL (NEG) Urine Blood Moderate (NEG) Urine Nitrite Negative (NEG) Urine Bilirubin Negative (NEG) Urine Urobilinogen Dipstick 0.2mg/dL (0.2 mg/dL) Urine Leukocyte Esterase Negative (NEG) Urine RBC 0/HPF (0-2) Urine WBC 0/HPF (0-4) Urine Squamous Epithelial Cells Few/LPF Urine Renal Epithelial Cells Few/LPF Urine Amorphous Sediment Present/HPF Urine Bacteria 0/HPF (0-FEW) Urine Hyaline Casts Occasional/HPF Urine Mucus Slight/LPF O2 Saturation 98% (92-99) Arterial Blood pH 7.05 (7.35-7.45) Arterial Blood pCO2 at Patient Temp < 15mmHg (35-46) Arterial Blood pO2 at Patient Temp 121mmHg (75-108) Arterial Blood HCO3 3mmol/L (21-28) Arterial Blood Base Excess -25mmol/L (-3-3) FiO2 21 Test 02/28/17 10:55 02/28/17 12:15 02/28/17 12:25 02/28/17 13:22 Glucose (Fingerstick) 378mg/dL (70-99) 343mg/dL (70-99) 289mg/dL (70-99) Sodium Level 139mmol/L (136-145) Potassium Level 4.0mmol/L (3.5-5.1) Chloride Level 101mmol/L (98-107) Carbon Dioxide Level 8mmol/L (21-32) Anion Gap 30 (6-14) Blood Urea Nitrogen 14mg/dL (8-26) Creatinine 1.5mg/dL (0.7-1.3) Estimated GFR (Cockcroft-Gault) 51.1 Glucose Level 365mg/dL (70-99) Calcium Level 8.0mg/dL (8.5-10.1) Phosphorus Level 2.6mg/dL (2.6-4.7) Magnesium Level 2.2mg/dL (1.8-2.4) Test 02/28/17 14:31 02/28/17 15:59 02/28/17 16:20 02/28/17 17:06 Glucose (Fingerstick) 249mg/dL (70-99) 190mg/dL (70-99) 165mg/dL (70-99) Sodium Level 139mmol/L (136-145) Potassium Level 3.2mmol/L (3.5-5.1) Chloride Level 103mmol/L (98-107) Carbon Dioxide Level 7mmol/L (21-32) Anion Gap 29 (6-14) Blood Urea Nitrogen 13mg/dL (8-26) Creatinine 1.4mg/dL (0.7-1.3) Estimated GFR (Cockcroft-Gault) 55.3 Glucose Level 210mg/dL (70-99) Calcium Level 8.4mg/dL (8.5-10.1) Phosphorus Level 1.6mg/dL (2.6-4.7) Magnesium Level 2.0mg/dL (1.8-2.4) Test 02/28/17 18:37 02/28/17 19:44 02/28/17 20:48 02/28/17 21:54 Glucose (Fingerstick) 143mg/dL (70-99) 163mg/dL (70-99) 202mg/dL (70-99) 217mg/dL (70-99) Test 02/28/17 23:00 03/01/17 00:23 03/01/17 01:00 03/01/17 01:27 Glucose (Fingerstick) 208mg/dL (70-99) 203mg/dL (70-99) 215mg/dL (70-99) Sodium Level 134mmol/L (136-145) Potassium Level 2.4mmol/L (3.5-5.1) Chloride Level 102mmol/L (98-107) Carbon Dioxide Level 12mmol/L (21-32) Anion Gap 20 (6-14) Blood Urea Nitrogen 9mg/dL (8-26) Creatinine 1.4mg/dL (0.7-1.3) Estimated GFR (Cockcroft-Gault) 55.3 Glucose Level 235mg/dL (70-99) Calcium Level 8.0mg/dL (8.5-10.1) Phosphorus Level 0.6mg/dL (2.6-4.7) Magnesium Level 1.6mg/dL (1.8-2.4) Test 03/01/17 02:36 03/01/17 03:43 03/01/17 04:46 03/01/17 05:00 Glucose (Fingerstick) 191mg/dL (70-99) 199mg/dL (70-99) 188mg/dL (70-99) White Blood Count 11.1x10^3/uL (4.0-11.0) Red Blood Count 4.83x10^6/uL (4.30-5.70) Hemoglobin 13.1g/dL (13.0-17.5) Hematocrit 39.3% (39.0-53.0) Mean Corpuscular Volume 82fL (79-100) Mean Corpuscular Hemoglobin 27pg (25-35) Mean Corpuscular Hemoglobin Concent 33g/dL (31-37) Red Cell Distribution Width 13.3% (11.5-14.5) Platelet Count 135x10^3/uL (140-400) Neutrophils (%) (Auto) 87% (31-73) Lymphocytes (%) (Auto) 7% (24-48) Monocytes (%) (Auto) 5% (0-9) Eosinophils (%) (Auto) 0% (0-3) Basophils (%) (Auto) 0% (0-3) Neutrophils # (Auto) 9.7x10^3uL (1.8-7.7) Lymphocytes # (Auto) 0.8x10^3/uL (1.0-4.8) Monocytes # (Auto) 0.6x10^3/uL (0.0-1.1) Eosinophils # (Auto) 0.0x10^3/uL (0.0-0.7) Basophils # (Auto) 0.0x10^3/uL (0.0-0.2) Segmented Neutrophils % 74% (35-66) Band Neutrophils % 18% (0-9) Lymphocytes % 6% (24-48) Monocytes % 2% (0-10) Platelet Estimate Adequate (ADEQUATE) Prothrombin Time 12.4SEC (11.7-14.0) Prothromb Time International Ratio 1.0 (0.8-1.1) Sodium Level 128mmol/L (136-145) Potassium Level 2.3mmol/L (3.5-5.1) Chloride Level 103mmol/L (98-107) Carbon Dioxide Level 15mmol/L (21-32) Anion Gap 10 (6-14) Blood Urea Nitrogen 8mg/dL (8-26) Creatinine 1.4mg/dL (0.7-1.3) Estimated GFR (Cockcroft-Gault) 55.3 BUN/Creatinine Ratio 6 (6-20) Glucose Level 207mg/dL (70-99) Calcium Level 8.0mg/dL (8.5-10.1) Phosphorus Level 1.1mg/dL (2.6-4.7) Magnesium Level 2.0mg/dL (1.8-2.4) Total Bilirubin 0.6mg/dL (0.2-1.0) Aspartate Amino Transf (AST/SGOT) 35U/L (15-37) Alanine Aminotransferase (ALT/SGPT) 41U/L (16-63) Alkaline Phosphatase 105U/L (46-116) Total Protein 5.9g/dL (6.4-8.2) Albumin 2.3g/dL (3.4-5.0) Albumin/Globulin Ratio 0.6 (1.0-1.7) Lipase 4174U/L (73-393) Test 03/01/17 05:50 Glucose (Fingerstick) 187mg/dL (70-99) Laboratory Tests Test 02/28/17 09:45 02/28/17 09:57 02/28/17 10:55 02/28/17 12:15 Urine Collection Type Unknown Urine Color Yellow Urine Clarity Clear Urine pH 5.5 Urine Specific Henefer >=1.030 Urine Protein >=300mg/dL (NEG-TRACE) Urine Glucose (UA) >=1000mg/dL (NEG) Urine Ketones (Stick) >=80mg/dL (NEG) Urine Blood Moderate (NEG) Urine Nitrite Negative (NEG) Urine Bilirubin Negative (NEG) Urine Urobilinogen Dipstick 0.2mg/dL (0.2 mg/dL) Urine Leukocyte Esterase Negative (NEG) Urine RBC 0/HPF (0-2) Urine WBC 0/HPF (0-4) Urine Squamous Epithelial Cells Few/LPF Urine Renal Epithelial Cells Few/LPF Urine Amorphous Sediment Present/HPF Urine Bacteria 0/HPF (0-FEW) Urine Hyaline Casts Occasional/HPF Urine Mucus Slight/LPF O2 Saturation 98% (92-99) Arterial Blood pH 7.05 (7.35-7.45) Arterial Blood pCO2 at Patient Temp < 15mmHg (35-46) Arterial Blood pO2 at Patient Temp 121mmHg (75-108) Arterial Blood HCO3 3mmol/L (21-28) Arterial Blood Base Excess -25mmol/L (-3-3) FiO2 21 Glucose (Fingerstick) 378mg/dL (70-99) 343mg/dL (70-99) Test 02/28/17 12:25 02/28/17 13:22 02/28/17 14:31 02/28/17 15:59 Sodium Level 139mmol/L (136-145) Potassium Level 4.0mmol/L (3.5-5.1) Chloride Level 101mmol/L (98-107) Carbon Dioxide Level 8mmol/L (21-32) Anion Gap 30 (6-14) Blood Urea Nitrogen 14mg/dL (8-26) Creatinine 1.5mg/dL (0.7-1.3) Estimated GFR (Cockcroft-Gault) 51.1 Glucose Level 365mg/dL (70-99) Calcium Level 8.0mg/dL (8.5-10.1) Phosphorus Level 2.6mg/dL (2.6-4.7) Magnesium Level 2.2mg/dL (1.8-2.4) Glucose (Fingerstick) 289mg/dL (70-99) 249mg/dL (70-99) 190mg/dL (70-99) Test 02/28/17 16:20 02/28/17 17:06 02/28/17 18:37 02/28/17 19:44 Sodium Level 139mmol/L (136-145) Potassium Level 3.2mmol/L (3.5-5.1) Chloride Level 103mmol/L (98-107) Carbon Dioxide Level 7mmol/L (21-32) Anion Gap 29 (6-14) Blood Urea Nitrogen 13mg/dL (8-26) Creatinine 1.4mg/dL (0.7-1.3) Estimated GFR (Cockcroft-Gault) 55.3 Glucose Level 210mg/dL (70-99) Calcium Level 8.4mg/dL (8.5-10.1) Phosphorus Level 1.6mg/dL (2.6-4.7) Magnesium Level 2.0mg/dL (1.8-2.4) Glucose (Fingerstick) 165mg/dL (70-99) 143mg/dL (70-99) 163mg/dL (70-99) Test 02/28/17 20:48 02/28/17 21:54 02/28/17 23:00 03/01/17 00:23 Glucose (Fingerstick) 202mg/dL (70-99) 217mg/dL (70-99) 208mg/dL (70-99) 203mg/dL (70-99) Test 03/01/17 01:00 03/01/17 01:27 03/01/17 02:36 03/01/17 03:43 Sodium Level 134mmol/L (136-145) Potassium Level 2.4mmol/L (3.5-5.1) Chloride Level 102mmol/L (98-107) Carbon Dioxide Level 12mmol/L (21-32) Anion Gap 20 (6-14) Blood Urea Nitrogen 9mg/dL (8-26) Creatinine 1.4mg/dL (0.7-1.3) Estimated GFR (Cockcroft-Gault) 55.3 Glucose Level 235mg/dL (70-99) Calcium Level 8.0mg/dL (8.5-10.1) Phosphorus Level 0.6mg/dL (2.6-4.7) Magnesium Level 1.6mg/dL (1.8-2.4) Glucose (Fingerstick) 215mg/dL (70-99) 191mg/dL (70-99) 199mg/dL (70-99) Test 03/01/17 04:46 03/01/17 05:00 03/01/17 05:50 Glucose (Fingerstick) 188mg/dL (70-99) 187mg/dL (70-99) White Blood Count 11.1x10^3/uL (4.0-11.0) Red Blood Count 4.83x10^6/uL (4.30-5.70) Hemoglobin 13.1g/dL (13.0-17.5) Hematocrit 39.3% (39.0-53.0) Mean Corpuscular Volume 82fL (79-100) Mean Corpuscular Hemoglobin 27pg (25-35) Mean Corpuscular Hemoglobin Concent 33g/dL (31-37) Red Cell Distribution Width 13.3% (11.5-14.5) Platelet Count 135x10^3/uL (140-400) Neutrophils (%) (Auto) 87% (31-73) Lymphocytes (%) (Auto) 7% (24-48) Monocytes (%) (Auto) 5% (0-9) Eosinophils (%) (Auto) 0% (0-3) Basophils (%) (Auto) 0% (0-3) Neutrophils # (Auto) 9.7x10^3uL (1.8-7.7) Lymphocytes # (Auto) 0.8x10^3/uL (1.0-4.8) Monocytes # (Auto) 0.6x10^3/uL (0.0-1.1) Eosinophils # (Auto) 0.0x10^3/uL (0.0-0.7) Basophils # (Auto) 0.0x10^3/uL (0.0-0.2) Segmented Neutrophils % 74% (35-66) Band Neutrophils % 18% (0-9) Lymphocytes % 6% (24-48) Monocytes % 2% (0-10) Platelet Estimate Adequate (ADEQUATE) Prothrombin Time 12.4SEC (11.7-14.0) Prothromb Time International Ratio 1.0 (0.8-1.1) Sodium Level 128mmol/L (136-145) Potassium Level 2.3mmol/L (3.5-5.1) Chloride Level 103mmol/L (98-107) Carbon Dioxide Level 15mmol/L (21-32) Anion Gap 10 (6-14) Blood Urea Nitrogen 8mg/dL (8-26) Creatinine 1.4mg/dL (0.7-1.3) Estimated GFR (Cockcroft-Gault) 55.3 BUN/Creatinine Ratio 6 (6-20) Glucose Level 207mg/dL (70-99) Calcium Level 8.0mg/dL (8.5-10.1) Phosphorus Level 1.1mg/dL (2.6-4.7) Magnesium Level 2.0mg/dL (1.8-2.4) Total Bilirubin 0.6mg/dL (0.2-1.0) Aspartate Amino Transf (AST/SGOT) 35U/L (15-37) Alanine Aminotransferase (ALT/SGPT) 41U/L (16-63) Alkaline Phosphatase 105U/L (46-116) Total Protein 5.9g/dL (6.4-8.2) Albumin 2.3g/dL (3.4-5.0) Albumin/Globulin Ratio 0.6 (1.0-1.7) Lipase 4174U/L (73-393) Medications Current Medications Morphine Sulfate 4 mg PRN Q15MIN PRN IV/SQ PAIN GREATER THAN 3/10 Last administered on 02/28/17 16:08; Start 02/28/17 at 08:30; Stop 02/28/17 at 16:29; Status DC Ondansetron HCl 4 mg 4 mg 1X ONCE IV Last administered on 02/28/17 08:42; Start 02/28/17 at 09:00; Stop 02/28/17 at 09:01; Status DC Sodium Chloride 1,000 ml @ 1,000 mls/hr 1X ONCE IV Last administered on 09:44; Start 02/28/17 at 09:00; Stop 02/28/17 at 09:59; Status DC Sodium Chloride 1,000 ml @ 1,000 mls/hr 1X ONCE IV Last administered on 08:42; Start 02/28/17 at 08:45; Stop 02/28/17 at 09:44; Status DC Sodium Chloride 1,000 ml @ 1,000 mls/hr Q1H IV Last administered on 02/28/17 11:12; Start 02/28/17 at 10:30; Stop 02/28/17 at 10:33; Status DC Sodium Chloride 1,000 ml @ 500 mls/hr Q2H IV ; Start 02/28/17 at 11:30; Stop 02/28/17 at 13:30; Status DC Sodium Chloride 1,000 ml @ 150 mls/hr Q6H40M IV ; Start 02/28/17 at 13:30 Sodium Chloride 1,000 ml @ 250 mls/hr Q4H IV ; Start 02/28/17 at 13:30; Stop 03/01/17 at 08:30; Status DC Dextrose/Sodium Chloride 1,000 ml @ 250 mls/hr Q4H IV Last administered on 03/01 02:04; Start 02/28/17 at 13:30; Stop 03/01/17 at 08:30; Status DC Insulin Human Regular 150 unit/ Sodium Chloride 151.5 ml @ 0 mls/hr CONT PRN PRN IV PER PROTOCOL Last administered on 02/28/17 22:49; Start 02/28/17 at 10:30 ; Stop 03/01/17 at 08:30; Status DC Potassium Chloride 100 ml @ 100 mls/hr PRN Q1HR PRN IV SEE COMMENTS; Start 02/28/17 at 10:30 Potassium Chloride 100 ml @ 100 mls/hr PRN Q1HR PRN IV SEE COMMENTS; Start 02/28/17 at 10:30 Potassium Chloride 100 ml @ 100 mls/hr PRN Q1HR PRN IV SEE COMMENTS; Start 02/28/17 at 10:30 Insulin Human Regular (Novolin R Iv Drip) 150 ml @ 7.484 mls/ hr 1X ONCE IV Last administered on 02/28/17 11:11; Start 02/28/17 at 10:30; Stop 03/01/17 at 06: 32; Status DC Morphine Sulfate 4 mg 4 mg PRN Q2HR PRN IV PAIN Last administered on 03/01/17 08:20; Start 02/28/17 at 12:00 Multivitamins/ Thiamine HCl/ Folic Acid/Sodium Chloride (Infuvite Adult/ Iv Sodium Chloride 0.9% 1000ml Bag) 1,011.2 ml @ 100 mls/ hr 1X ONCE IV Last administered on 02/28/17 16:13; Start 02/28/17 at 16:00; Stop 03/01/17 at 02:06; Status DC Multivitamins (Thera M Plus) 1 tab DAILY PO Last administered on 03/01/17 08:20 ; Start 03/01/17 at 09:00 Folic Acid (Folic Acid) 1 mg DAILY PO Last administered on 03/01/17 08:20; Start 03/01/17 at 09:00 Lorazepam (Ativan) 2 mg PRN Q1HR PRN IV For CIWA 8-14; Start 02/28/17 at 15:00 Lorazepam (Ativan) 4 mg PRN Q1HR PRN IV For CIWA 15 or greater; Start 02/28/17 at 15:00 Diazepam (Valium) 5 mg PRN Q6HRS PRN IV SEIZURES; Start 02/28/17 at 15:00 Pantoprazole Sodium (Protonix Vial) 40 mg DAILYAC IVP Last administered on 08:20; Start 02/28/17 at 16:30 Thiamine HCl (Vitamin B-1) 100 mg DAILY PO Last administered on 03/01/17 08:20 ; Start 03/01/17 at 09:00 Octreotide Acetate 100 mcg 100 mcg Q8HRS SQ Last administered on 03/01/17 05:58 ; Start 02/28/17 at 22:00 Potassium Chloride 100 ml @ 100 mls/hr Q1H IV Last administered on 02/28/17 22 :43; Start 02/28/17 at 19:30; Stop 02/28/17 at 23:29; Status DC Sodium Phosphate/ Dextrose 256.6667 ml @ 62.5 mls/hr 1X PRN PRN IV SEE COMMENTS Last administered on 02/28/17 19:34; Start 02/28/17 at 19:30 Ondansetron HCl (Zofran) 4 mg PRN Q6HRS PRN IV NAUSEA/VOMITING Last administered on 02/28/17 22:54; Start 02/28/17 at 20:45 Acetaminophen (Tylenol) 500 mg PRN Q6HRS PRN PO MILD PAIN / TEMP; Start at 20:45 Sodium Bicarbonate 100 meq 100 meq 1X ONCE IV Last administered on 02/28/17 21 :35; Start 02/28/17 at 21:00; Stop 02/28/17 at 21:01; Status DC Magnesium Sulfate/ Dextrose 100 ml @ 25 mls/hr DAILY IV Last administered on 08:21; Start 03/01/17 at 02:30; Stop 03/04/17 at 02:29 Sodium Phosphate 40 mmol/Sodium Chloride 513.3333 ml @ 83.3 mls/hr 1X PRN PRN IV SEE COMMENTS Last administered on 03/01/17 03:20; Start 03/01/17 at 02:30 Potassium Chloride 100 ml @ 100 mls/hr Q1H IV Last administered on 03/01/17 08 :23; Start 03/01/17 at 02:30; Stop 03/01/17 at 08:29; Status DC Dextrose/Sodium Chloride 1,000 ml @ 250 mls/hr Q4H IV Last administered on 03/01 05:52; Start 03/01/17 at 05:45; Stop 03/01/17 at 08:30; Status DC Potassium Phosphate 13.6 mmol/Sodium Chloride 104.5333 ml @ 52.267 m... Q2H IV ; Start 03/01/17 at 09:00; Stop 03/01/17 at 12:59 Sodium Chloride/ Sodium Bicarbonate/ Sterile Water (Sodium Chloride/ Water) 1, 059.6875 ml @ 125 mls/hr 1X ONCE IV ; Start 03/01/17 at 09:30; Stop 03/01/17 at 17:58; Status UNV Fentanyl Citrate (Fentanyl 2ml Vial) 50 mcg PRN Q2HR PRN IV PAIN; Start at 09:30; Status UNV Active Scripts Active Reported Captopril 12.5 Mg Tablet 10 Mg PO DAILY Famotidine 20 Mg Tablet 20 Mg PO BID Metformin Hcl 1,000 Mg Tablet 1 Tab PO BID Vitals/I & O Vital Sign - Last 24 Hours 02/28/17 02/28/17 02/28/17 02/28/17 09:50 10:20 10:20 10:50 Pulse 120 120 122 Resp 21 21 18 21 B/P 149/84 151/90 155/91 Pulse Ox 98 98 97 98 O2 Delivery Room Air Room Air Room Air Room Air 02/28/17 02/28/17 02/28/17 02/28/17 11:20 11:50 11:52 12:00 Pulse 120 122 126 Resp 21 21 22 16 B/P 147/88 149/87 140/85 Pulse Ox 98 98 98 100 O2 Delivery Room Air Room Air Room Air Room Air 02/28/17 02/28/17 02/28/17 02/28/17 12:00 13:00 13:35 14:00 Pulse 126 126 Resp 16 16 B/P 152/85 125/87 Pulse Ox 100 98 100 O2 Delivery Room Air Room Air Room Air 02/28/17 02/28/17 02/28/17 02/28/17 15:00 16:00 16:00 16:08 Pulse 126 126 Resp 16 16 22 B/P 145/88 140/80 Pulse Ox 100 100 100 O2 Delivery Room Air Room Air Room Air Room Air 02/28/17 02/28/17 02/28/17 02/28/17 17:00 18:00 18:33 19:00 Pulse 126 126 132 Resp 16 16 20 B/P 159/91 170/100 137/82 Pulse Ox 100 100 100 96 O2 Delivery Room Air Room Air Room Air 02/28/17 02/28/17 02/28/17 02/28/17 19:30 20:00 20:54 21:00 Temp 99.1 99.1 Pulse 132 137 Resp 20 22 18 B/P 128/84 117/85 Pulse Ox 96 97 95 O2 Delivery Room Air Room Air Room Air Room Air 02/28/17 02/28/17 02/28/17 02/28/17 22:00 22:54 23:03 23:55 Temp 100.8 100.8 Pulse 126 134 Resp 19 19 18 B/P 142/92 133/82 Pulse Ox 98 96 95 O2 Delivery Room Air Room Air Room Air 03/01/17 03/01/17 03/01/17 03/01/17 00:00 01:00 01:32 02:00 Pulse 132 130 130 Resp 17 18 17 19 B/P 119/76 124/70 111/70 Pulse Ox 96 95 95 93 O2 Delivery Room Air Room Air Room Air Room Air 03/01/17 03/01/17 03/01/17 03/01/17 03:00 03:45 04:00 05:00 Temp 100.9 100.9 Pulse 130 127 124 Resp 19 19 19 B/P 113/68 113/71 121/71 Pulse Ox 94 94 94 O2 Delivery Room Air Room Air Room Air Room Air 03/01/17 03/01/17 03/01/17 03/01/17 05:55 06:00 06:25 08:20 Pulse 122 Resp 24 17 19 B/P 115/69 Pulse Ox 94 92 95 95 O2 Delivery Nasal Cannula Room Air Room Air Room Air Intake and Output 02/28/17 02/28/17 03/01/17 15:00 23:00 07:00 Intake Total 1000 ml 200 ml 5706 ml Output Total 800 ml 2625 ml Balance 1000 ml -600 ml 3081 ml TESSA BALDERAS MD Mar 01, 2017 09:37
[2017-03-01 09:53] LABS: ALBUMIN 2.2 g/dL (3.4-5.0); ALBUMIN/GLOBULIN RATIO 0.6 (1.0-1.7); CALCIUM 7.8 mg/dL (8.5-10.1); CREATININE 1.4 mg/dL (0.7-1.3); GFR 55.3; MAGNESIUM 2.6 mg/dL (1.8-2.4); PHOSPHORUS 2.1 mg/dL (2.6-4.7); TOTAL BILIRUBIN 0.7 mg/dL (0.2-1.0); TOTAL PROTEIN 5.8 g/dL (6.4-8.2)
[2017-03-01] MEDS ORDERED: SODIUM CHLORIDE 38.75 MEQ, SODIUM BICARBONATE VIAL 50 MEQ in IV STERILE WATER 1,000 ML IV ONE (10:00)
--- NOTE | 2017-03-01 10:03 | PDOC ---
Subjective: Subjective: Epigastric and LLQ pain. Objective: Vital Signs: Vital Signs Date Time Temp Pulse Resp B/P Pulse Ox O2 Delivery O2 Flow Rate FiO2 03/01/17 08:50 95 Room Air 03/01/17 06:25 19 03/01/17 06:00 122 115/69 03/01/17 04:00 100.9 100.9 Labs: Laboratory Tests Test 02/28/17 10:55 02/28/17 12:15 02/28/17 13:22 02/28/17 14:31 Glucose (Fingerstick) 378mg/dL (70-99) 343mg/dL (70-99) 289mg/dL (70-99) 249mg/dL (70-99) Test 02/28/17 15:59 02/28/17 17:06 02/28/17 18:37 02/28/17 19:44 Glucose (Fingerstick) 190mg/dL (70-99) 165mg/dL (70-99) 143mg/dL (70-99) 163mg/dL (70-99) Test 02/28/17 20:48 02/28/17 21:54 02/28/17 23:00 03/01/17 00:23 Glucose (Fingerstick) 202mg/dL (70-99) 217mg/dL (70-99) 208mg/dL (70-99) 203mg/dL (70-99) Test 03/01/17 01:27 03/01/17 02:36 03/01/17 03:43 03/01/17 04:46 Glucose (Fingerstick) 215mg/dL (70-99) 191mg/dL (70-99) 199mg/dL (70-99) 188mg/dL (70-99) Test 03/01/17 05:50 Glucose (Fingerstick) 187mg/dL (70-99) Imaging: CT A/P w/o contrast IMPRESSION: 1. Extensive peripancreatic inflammation compatible with acute pancreatitis. 2. Moderate associated distention of the stomach with fluid. PE: GEN: NAD LUNGS: clear anteriorly bilaterally HEART: tachycardic ABD: BS+, epigastric tenderness - actually seems diffusely uncomfortable NEURO/PSYCH: A & O 3, Indian-speaking A/P: DKA Recurrent alcoholic pancreatitis -3rd episode -lipase worse (3871 to 4174), WBC better (22.7 to 11.1) -ongoing epigastric pain -CT as above w/ extensive panc inflammation -liver unremarkable, LFTs WNL, note mild thrombocytopenia -- Keep NPO w/ ongoing pain. RAYA CULLEN Mar 01, 2017 10:03
[2017-03-01] MEDS: FENTANYL PF 100 MCG/2 ML VIAL. IV PRN ×4 (10:13→22:00)
[2017-03-01 10:18] LABS: POTASSIUM 2.4 mmol/L (3.5-5.1)
[2017-03-01 10:19] LABS: CHOLESTEROL 252 mg/dL (0-200); CHOLESTEROL/HDL RATIO 10.5; HDLC 24 mg/dL (40-60)
[2017-03-01] MEDS: POTASSIUM PHOSPHATE DIBASIC 13.6 MMOL in IV NORMAL SALINE 100ML 100 ML IV SCH ×2 (10:43→14:01)
[2017-03-01] MEDS: INSULIN DETEMIR 300 UNITS/3 ML INSULN.PEN. SQ SCH ×2 (10:45→21:54)
[2017-03-01] MEDS ORDERED: DEXTROSE 50% 25 GM / 50ML DISP.SYRIN. IV ONE ×2 (11:20→11:21)
[2017-03-01 12:57] LABS: HCO3 ABG 13 mmol/L (21-28); PCO2 ABG 30 mmHg (35-46); PH ABG 7.26 (7.35-7.45); PO2 ABG 86 mmHg (75-108); SAT O2 ABG 97 % (92-99)
[2017-03-01] MEDS: INSULIN ASPART 300 UNITS/3 ML INSULN.PEN SQ SCH ×2 (13:00→17:00)
[2017-03-01] MEDS: HEPARIN PF for SUB-Q USE 5,000 UNIT/0.5 ML VIAL. SQ SCH ×2 (14:04→21:55)
[2017-03-01 14:52] LABS: FIO2 ABG 28
[2017-03-01] MEDS ORDERED: DEXTROSE 50% 25 GM / 50ML DISP.SYRIN. IV PRN (17:15)
[2017-03-01] MEDS ORDERED: IV NORMAL SALINE 1000ML BAG 1,000 ML IV SCH (17:15)
[2017-03-01 19:40] LABS: CALCIUM 8.2 mg/dL (8.5-10.1); CREATININE 1.4 mg/dL (0.7-1.3); GFR 55.3; MAGNESIUM 2.9 mg/dL (1.8-2.4); PHOSPHORUS 3.8 mg/dL (2.6-4.7)
[2017-03-01] MEDS: POTASSIUM CHLORIDE 30 MEQ in IV 1/2 NORMAL SALINE 1,000 ML IV SCH (21:45)
[2017-03-01] MEDS: LORAZEPAM 2 MG/ML VIAL. IV PRN (21:59)
[2017-03-02 03:02] VITALS: BP 110/71
[2017-03-02] MEDS: FENTANYL PF 100 MCG/2 ML VIAL. IV PRN ×2 (04:42→11:41)
[2017-03-02] MEDS: POTASSIUM CHLORIDE 30 MEQ in IV 1/2 NORMAL SALINE 1,000 ML IV SCH ×2 (04:43→11:32)
[2017-03-02] MEDS: INSULIN ASPART 300 UNITS/3 ML INSULN.PEN SQ SCH ×4 (06:05→18:22)
[2017-03-02] MEDS: OCTREOTIDE 100 MCG/ML VIAL SQ SCH ×3 (06:07→21:32)
[2017-03-02] MEDS: HEPARIN PF for SUB-Q USE 5,000 UNIT/0.5 ML VIAL. SQ SCH ×3 (06:10→21:41)
[2017-03-02] MEDS: MORPHINE SULFATE 4 MG/ML DISP.SYRIN. IV PRN ×4 (06:13→22:23)
[2017-03-02 07:22] VITALS: BP 146/94
[2017-03-02 07:32] LABS: BASO # 0.1 x10^3/uL (0.0-0.2); BASO % 1 % (0-3); EOS % 1 % (0-3); HEMATOCRIT 35.8 % (39.0-53.0); LYMPH # 3.6 x10^3/uL (1.0-4.8); LYMPH % 39 % (24-48); MEAN CORPUSCULAR VOLUME 81 fL (79-100); MONO % 4 % (0-9); NEUT % 56 % (31-73); PLATELET COUNT 102 x10^3/uL (140-400); RED CELL DISTRIBUTION WIDTH 13.8 % (11.5-14.5); WHITE BLOOD COUNT 9.2 x10^3/uL (4.0-11.0)
[2017-03-02] MEDS ORDERED: INSULIN ASPART 300 UNITS/3 ML INSULN.PEN SQ SCH (08:00)
[2017-03-02 08:17] LABS: CREATININE 1.2 mg/dL (0.7-1.3); GFR 66.1; MAGNESIUM 2.7 mg/dL (1.8-2.4); PHOSPHORUS 2.6 mg/dL (2.6-4.7)
[2017-03-02 08:22] LABS: MEAN CORPUSCULAR HEMOGLOBIN 27 pg (25-35); MEAN CORPUSCULAR HGB CONC 33 g/dL (31-37)
[2017-03-02 08:24] LABS: POTASSIUM 2.9 mmol/L (3.5-5.1)
[2017-03-02 08:26] LABS: CALCIUM 8.9 mg/dL (8.5-10.1)
[2017-03-02] MEDS: PANTOPRAZOLE IV PUSH 40 MG VIAL. IVP SCH (08:49)
[2017-03-02] MEDS: THIAMINE 100 MG TABLET. PO SCH (08:50)
[2017-03-02] MEDS: MULTIVITAMIN with MINERAL TABLET. PO SCH (08:50)
[2017-03-02] MEDS: FOLIC ACID 1 MG TABLET. PO SCH (08:50)
[2017-03-02] MEDS: INSULIN DETEMIR 300 UNITS/3 ML INSULN.PEN. SQ SCH ×2 (08:57→21:40)
[2017-03-02] MEDS: POTASSIUM CHLORIDE 10MEQ 100 ML IV SCH ×4 (10:19→13:40)
[2017-03-02 11:31] VITALS: BP 151/91
--- NOTE | 2017-03-02 13:20 | PDOC ---
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 Thormbocytopenia mild GAp metabolic acidosis HYpokalemia with hypophosphatemia plan: fu with gi cont ivf levemir 30u bid, ssi start clear liquid fu labs , lipase daily replete K gi, dvt ppx History of Present Illness History of Present Illness still abd pain, LLQ, 6/10, better tho lipase better to 500 no BM npo, got levemir yesterday, glucose is ok low k Vitals Vitals Vital Signs Date Time Temp Pulse Resp B/P Pulse Ox O2 Delivery O2 Flow Rate FiO2 03/02/17 12:17 Room Air 03/02/17 11:31 98.2 98 19 151/91 95 98.2 03/01/17 22:49 2.0 Physical Exam General: Alert, Oriented X3, moderate distress, severe distress Heart: Regular rate, Normal S1, Normal S2 Lungs: Clear Abdomen: Normal bowel sounds ( ), Soft, Other (Left abd moderate tenderness) Extremities: No clubbing, No edema, Normal pulses Skin: No breakdown Labs LABS Laboratory Tests Test 03/01/17 13:56 03/01/17 18:05 03/01/17 18:21 03/01/17 20:11 Glucose (Fingerstick) 159mg/dL (70-99) 196mg/dL (70-99) 190mg/dL (70-99) Sodium Level 133mmol/L (136-145) Potassium Level 3.0mmol/L (3.5-5.1) Chloride Level 98mmol/L (98-107) Carbon Dioxide Level 13mmol/L (21-32) Anion Gap 22 (6-14) Blood Urea Nitrogen 8mg/dL (8-26) Creatinine 1.4mg/dL (0.7-1.3) Estimated GFR (Cockcroft-Gault) 55.3 Glucose Level 231mg/dL (70-99) Calcium Level 8.2mg/dL (8.5-10.1) Phosphorus Level 3.8mg/dL (2.6-4.7) Magnesium Level 2.9mg/dL (1.8-2.4) Test 03/02/17 00:16 03/02/17 06:02 03/02/17 07:19 03/02/17 11:58 Glucose (Fingerstick) 193mg/dL (70-99) 147mg/dL (70-99) 121mg/dL (70-99) White Blood Count 9.2x10^3/uL (4.0-11.0) Red Blood Count 4.40x10^6/uL (4.30-5.70) Hemoglobin 12.0g/dL (13.0-17.5) Hematocrit 35.8% (39.0-53.0) Mean Corpuscular Volume 81fL (79-100) Mean Corpuscular Hemoglobin 27pg (25-35) Mean Corpuscular Hemoglobin Concent 33g/dL (31-37) Red Cell Distribution Width 13.8% (11.5-14.5) Platelet Count 102x10^3/uL (140-400) Neutrophils (%) (Auto) 56% (31-73) Lymphocytes (%) (Auto) 39% (24-48) Monocytes (%) (Auto) 4% (0-9) Eosinophils (%) (Auto) 1% (0-3) Basophils (%) (Auto) 1% (0-3) Neutrophils # (Auto) 5.1x10^3uL (1.8-7.7) Lymphocytes # (Auto) 3.6x10^3/uL (1.0-4.8) Monocytes # (Auto) 0.3x10^3/uL (0.0-1.1) Eosinophils # (Auto) 0.1x10^3/uL (0.0-0.7) Basophils # (Auto) 0.1x10^3/uL (0.0-0.2) Sodium Level 136mmol/L (136-145) Potassium Level 2.9mmol/L (3.5-5.1) Chloride Level 102mmol/L (98-107) Carbon Dioxide Level 20mmol/L (21-32) Anion Gap 14 (6-14) Blood Urea Nitrogen 10mg/dL (8-26) Creatinine 1.2mg/dL (0.7-1.3) Estimated GFR (Cockcroft-Gault) 66.1 Glucose Level 164mg/dL (70-99) Calcium Level 8.9mg/dL (8.5-10.1) Phosphorus Level 2.6mg/dL (2.6-4.7) Magnesium Level 2.7mg/dL (1.8-2.4) Lipase 537U/L (73-393) Review of Systems Review of Systems no fever, chills, sob or chest pain Assessment and Plan Assessmemt and Plan Problems Medical Problems: (1) DKA (diabetic ketoacidosis) Status: Acute Problems: Comment Review of Relevant I have reviewed the following items sharla (where applicable) has been applied. Labs Laboratory Tests Test 02/28/17 13:22 02/28/17 14:31 02/28/17 15:59 02/28/17 16:20 Glucose (Fingerstick) 289mg/dL (70-99) 249mg/dL (70-99) 190mg/dL (70-99) Sodium Level 139mmol/L (136-145) Potassium Level 3.2mmol/L (3.5-5.1) Chloride Level 103mmol/L (98-107) Carbon Dioxide Level 7mmol/L (21-32) Anion Gap 29 (6-14) Blood Urea Nitrogen 13mg/dL (8-26) Creatinine 1.4mg/dL (0.7-1.3) Estimated GFR (Cockcroft-Gault) 55.3 Glucose Level 210mg/dL (70-99) Calcium Level 8.4mg/dL (8.5-10.1) Phosphorus Level 1.6mg/dL (2.6-4.7) Magnesium Level 2.0mg/dL (1.8-2.4) Test 02/28/17 17:06 02/28/17 18:37 02/28/17 19:44 02/28/17 20:48 Glucose (Fingerstick) 165mg/dL (70-99) 143mg/dL (70-99) 163mg/dL (70-99) 202mg/dL (70-99) Test 02/28/17 21:54 02/28/17 23:00 03/01/17 00:23 03/01/17 01:00 Glucose (Fingerstick) 217mg/dL (70-99) 208mg/dL (70-99) 203mg/dL (70-99) Sodium Level 134mmol/L (136-145) Potassium Level 2.4mmol/L (3.5-5.1) Chloride Level 102mmol/L (98-107) Carbon Dioxide Level 12mmol/L (21-32) Anion Gap 20 (6-14) Blood Urea Nitrogen 9mg/dL (8-26) Creatinine 1.4mg/dL (0.7-1.3) Estimated GFR (Cockcroft-Gault) 55.3 Glucose Level 235mg/dL (70-99) Calcium Level 8.0mg/dL (8.5-10.1) Phosphorus Level 0.6mg/dL (2.6-4.7) Magnesium Level 1.6mg/dL (1.8-2.4) Test 03/01/17 01:27 03/01/17 02:36 03/01/17 03:43 03/01/17 04:46 Glucose (Fingerstick) 215mg/dL (70-99) 191mg/dL (70-99) 199mg/dL (70-99) 188mg/dL (70-99) Test 03/01/17 05:00 03/01/17 05:50 03/01/17 06:54 03/01/17 07:57 White Blood Count 11.1x10^3/uL (4.0-11.0) Red Blood Count 4.83x10^6/uL (4.30-5.70) Hemoglobin 13.1g/dL (13.0-17.5) Hematocrit 39.3% (39.0-53.0) Mean Corpuscular Volume 82fL (79-100) Mean Corpuscular Hemoglobin 27pg (25-35) Mean Corpuscular Hemoglobin Concent 33g/dL (31-37) Red Cell Distribution Width 13.3% (11.5-14.5) Platelet Count 135x10^3/uL (140-400) Neutrophils (%) (Auto) 87% (31-73) Lymphocytes (%) (Auto) 7% (24-48) Monocytes (%) (Auto) 5% (0-9) Eosinophils (%) (Auto) 0% (0-3) Basophils (%) (Auto) 0% (0-3) Neutrophils # (Auto) 9.7x10^3uL (1.8-7.7) Lymphocytes # (Auto) 0.8x10^3/uL (1.0-4.8) Monocytes # (Auto) 0.6x10^3/uL (0.0-1.1) Eosinophils # (Auto) 0.0x10^3/uL (0.0-0.7) Basophils # (Auto) 0.0x10^3/uL (0.0-0.2) Segmented Neutrophils % 74% (35-66) Band Neutrophils % 18% (0-9) Lymphocytes % 6% (24-48) Monocytes % 2% (0-10) Platelet Estimate Adequate (ADEQUATE) Prothrombin Time 12.4SEC (11.7-14.0) Prothromb Time International Ratio 1.0 (0.8-1.1) Nasal Screen MRSA (PCR) Negative (Negative) Sodium Level 128mmol/L (136-145) Potassium Level 2.3mmol/L (3.5-5.1) Chloride Level 103mmol/L (98-107) Carbon Dioxide Level 15mmol/L (21-32) Anion Gap 10 (6-14) Blood Urea Nitrogen 8mg/dL (8-26) Creatinine 1.4mg/dL (0.7-1.3) Estimated GFR (Cockcroft-Gault) 55.3 BUN/Creatinine Ratio 6 (6-20) Glucose Level 207mg/dL (70-99) Hemoglobin A1c 11.5% (4.8-5.6) Calcium Level 8.0mg/dL (8.5-10.1) Phosphorus Level 1.1mg/dL (2.6-4.7) Magnesium Level 2.0mg/dL (1.8-2.4) Total Bilirubin 0.6mg/dL (0.2-1.0) Aspartate Amino Transf (AST/SGOT) 35U/L (15-37) Alanine Aminotransferase (ALT/SGPT) 41U/L (16-63) Alkaline Phosphatase 105U/L (46-116) Total Protein 5.9g/dL (6.4-8.2) Albumin 2.3g/dL (3.4-5.0) Albumin/Globulin Ratio 0.6 (1.0-1.7) Triglycerides Level 826mg/dL (0-150) Cholesterol Level 252mg/dL (0-200) LDL Cholesterol, Calculated 63mg/dL (0-100) VLDL Cholesterol, Calculated 165mg/dL (0-40) HDL Cholesterol 24mg/dL (40-60) Cholesterol/HDL Ratio 10.5 Lipase 4174U/L (73-393) Glucose (Fingerstick) 187mg/dL (70-99) 182mg/dL (70-99) 160mg/dL (70-99) Test 03/01/17 08:59 03/01/17 09:00 03/01/17 10:06 03/01/17 11:19 Glucose (Fingerstick) 147mg/dL (70-99) 110mg/dL (70-99) 59mg/dL (70-99) Sodium Level 135mmol/L (136-145) Potassium Level 2.4mmol/L (3.5-5.1) Chloride Level 104mmol/L (98-107) Carbon Dioxide Level 17mmol/L (21-32) Anion Gap 14 (6-14) Blood Urea Nitrogen 7mg/dL (8-26) Creatinine 1.4mg/dL (0.7-1.3) Estimated GFR (Cockcroft-Gault) 55.3 BUN/Creatinine Ratio 5 (6-20) Glucose Level 156mg/dL (70-99) Calcium Level 7.8mg/dL (8.5-10.1) Phosphorus Level 2.1mg/dL (2.6-4.7) Magnesium Level 2.6mg/dL (1.8-2.4) Total Bilirubin 0.7mg/dL (0.2-1.0) Aspartate Amino Transf (AST/SGOT) 35U/L (15-37) Alanine Aminotransferase (ALT/SGPT) 38U/L (16-63) Alkaline Phosphatase 102U/L (46-116) Total Protein 5.8g/dL (6.4-8.2) Albumin 2.2g/dL (3.4-5.0) Albumin/Globulin Ratio 0.6 (1.0-1.7) Test 03/01/17 11:42 03/01/17 12:21 03/01/17 12:42 03/01/17 13:56 Glucose (Fingerstick) 108mg/dL (70-99) 120mg/dL (70-99) 159mg/dL (70-99) O2 Saturation 97% (92-99) Arterial Blood pH 7.26 (7.35-7.45) Arterial Blood pCO2 at Patient Temp 30mmHg (35-46) Arterial Blood pO2 at Patient Temp 86mmHg (75-108) Arterial Blood HCO3 13mmol/L (21-28) Arterial Blood Base Excess -13mmol/L (-3-3) FiO2 28 Test 03/01/17 18:05 03/01/17 18:21 03/01/17 20:11 03/02/17 00:16 Sodium Level 133mmol/L (136-145) Potassium Level 3.0mmol/L (3.5-5.1) Chloride Level 98mmol/L (98-107) Carbon Dioxide Level 13mmol/L (21-32) Anion Gap 22 (6-14) Blood Urea Nitrogen 8mg/dL (8-26) Creatinine 1.4mg/dL (0.7-1.3) Estimated GFR (Cockcroft-Gault) 55.3 Glucose Level 231mg/dL (70-99) Calcium Level 8.2mg/dL (8.5-10.1) Phosphorus Level 3.8mg/dL (2.6-4.7) Magnesium Level 2.9mg/dL (1.8-2.4) Glucose (Fingerstick) 196mg/dL (70-99) 190mg/dL (70-99) 193mg/dL (70-99) Test 03/02/17 06:02 03/02/17 07:19 03/02/17 11:58 Glucose (Fingerstick) 147mg/dL (70-99) 121mg/dL (70-99) White Blood Count 9.2x10^3/uL (4.0-11.0) Red Blood Count 4.40x10^6/uL (4.30-5.70) Hemoglobin 12.0g/dL (13.0-17.5) Hematocrit 35.8% (39.0-53.0) Mean Corpuscular Volume 81fL (79-100) Mean Corpuscular Hemoglobin 27pg (25-35) Mean Corpuscular Hemoglobin Concent 33g/dL (31-37) Red Cell Distribution Width 13.8% (11.5-14.5) Platelet Count 102x10^3/uL (140-400) Neutrophils (%) (Auto) 56% (31-73) Lymphocytes (%) (Auto) 39% (24-48) Monocytes (%) (Auto) 4% (0-9) Eosinophils (%) (Auto) 1% (0-3) Basophils (%) (Auto) 1% (0-3) Neutrophils # (Auto) 5.1x10^3uL (1.8-7.7) Lymphocytes # (Auto) 3.6x10^3/uL (1.0-4.8) Monocytes # (Auto) 0.3x10^3/uL (0.0-1.1) Eosinophils # (Auto) 0.1x10^3/uL (0.0-0.7) Basophils # (Auto) 0.1x10^3/uL (0.0-0.2) Sodium Level 136mmol/L (136-145) Potassium Level 2.9mmol/L (3.5-5.1) Chloride Level 102mmol/L (98-107) Carbon Dioxide Level 20mmol/L (21-32) Anion Gap 14 (6-14) Blood Urea Nitrogen 10mg/dL (8-26) Creatinine 1.2mg/dL (0.7-1.3) Estimated GFR (Cockcroft-Gault) 66.1 Glucose Level 164mg/dL (70-99) Calcium Level 8.9mg/dL (8.5-10.1) Phosphorus Level 2.6mg/dL (2.6-4.7) Magnesium Level 2.7mg/dL (1.8-2.4) Lipase 537U/L (73-393) Laboratory Tests Test 03/01/17 13:56 03/01/17 18:05 03/01/17 18:21 03/01/17 20:11 Glucose (Fingerstick) 159mg/dL (70-99) 196mg/dL (70-99) 190mg/dL (70-99) Sodium Level 133mmol/L (136-145) Potassium Level 3.0mmol/L (3.5-5.1) Chloride Level 98mmol/L (98-107) Carbon Dioxide Level 13mmol/L (21-32) Anion Gap 22 (6-14) Blood Urea Nitrogen 8mg/dL (8-26) Creatinine 1.4mg/dL (0.7-1.3) Estimated GFR (Cockcroft-Gault) 55.3 Glucose Level 231mg/dL (70-99) Calcium Level 8.2mg/dL (8.5-10.1) Phosphorus Level 3.8mg/dL (2.6-4.7) Magnesium Level 2.9mg/dL (1.8-2.4) Test 03/02/17 00:16 03/02/17 06:02 03/02/17 07:19 03/02/17 11:58 Glucose (Fingerstick) 193mg/dL (70-99) 147mg/dL (70-99) 121mg/dL (70-99) White Blood Count 9.2x10^3/uL (4.0-11.0) Red Blood Count 4.40x10^6/uL (4.30-5.70) Hemoglobin 12.0g/dL (13.0-17.5) Hematocrit 35.8% (39.0-53.0) Mean Corpuscular Volume 81fL (79-100) Mean Corpuscular Hemoglobin 27pg (25-35) Mean Corpuscular Hemoglobin Concent 33g/dL (31-37) Red Cell Distribution Width 13.8% (11.5-14.5) Platelet Count 102x10^3/uL (140-400) Neutrophils (%) (Auto) 56% (31-73) Lymphocytes (%) (Auto) 39% (24-48) Monocytes (%) (Auto) 4% (0-9) Eosinophils (%) (Auto) 1% (0-3) Basophils (%) (Auto) 1% (0-3) Neutrophils # (Auto) 5.1x10^3uL (1.8-7.7) Lymphocytes # (Auto) 3.6x10^3/uL (1.0-4.8) Monocytes # (Auto) 0.3x10^3/uL (0.0-1.1) Eosinophils # (Auto) 0.1x10^3/uL (0.0-0.7) Basophils # (Auto) 0.1x10^3/uL (0.0-0.2) Sodium Level 136mmol/L (136-145) Potassium Level 2.9mmol/L (3.5-5.1) Chloride Level 102mmol/L (98-107) Carbon Dioxide Level 20mmol/L (21-32) Anion Gap 14 (6-14) Blood Urea Nitrogen 10mg/dL (8-26) Creatinine 1.2mg/dL (0.7-1.3) Estimated GFR (Cockcroft-Gault) 66.1 Glucose Level 164mg/dL (70-99) Calcium Level 8.9mg/dL (8.5-10.1) Phosphorus Level 2.6mg/dL (2.6-4.7) Magnesium Level 2.7mg/dL (1.8-2.4) Lipase 537U/L (73-393) Medications Current Medications Morphine Sulfate 4 mg PRN Q15MIN PRN IV/SQ PAIN GREATER THAN 3/10 Last administered on 02/28/17 16:08; Start 02/28/17 at 08:30; Stop 02/28/17 at 16:29; Status DC Ondansetron HCl 4 mg 4 mg 1X ONCE IV Last administered on 02/28/17 08:42; Start 02/28/17 at 09:00; Stop 02/28/17 at 09:01; Status DC Sodium Chloride 1,000 ml @ 1,000 mls/hr 1X ONCE IV Last administered on 09:44; Start 02/28/17 at 09:00; Stop 02/28/17 at 09:59; Status DC Sodium Chloride 1,000 ml @ 1,000 mls/hr 1X ONCE IV Last administered on 08:42; Start 02/28/17 at 08:45; Stop 02/28/17 at 09:44; Status DC Sodium Chloride 1,000 ml @ 1,000 mls/hr Q1H IV Last administered on 02/28/17 11:12; Start 02/28/17 at 10:30; Stop 02/28/17 at 10:33; Status DC Sodium Chloride 1,000 ml @ 500 mls/hr Q2H IV ; Start 02/28/17 at 11:30; Stop 02/28/17 at 13:30; Status DC Sodium Chloride 1,000 ml @ 150 mls/hr Q6H40M IV ; Start 02/28/17 at 13:30; Stop 03/01/17 at 17:09; Status DC Sodium Chloride 1,000 ml @ 250 mls/hr Q4H IV ; Start 02/28/17 at 13:30; Stop 03/01/17 at 08:30; Status DC Dextrose/Sodium Chloride 1,000 ml @ 250 mls/hr Q4H IV Last administered on 03/01 02:04; Start 02/28/17 at 13:30; Stop 03/01/17 at 08:30; Status DC Insulin Human Regular 150 unit/ Sodium Chloride 151.5 ml @ 0 mls/hr CONT PRN PRN IV PER PROTOCOL Last administered on 02/28/17 22:49; Start 02/28/17 at 10:30 ; Stop 03/01/17 at 08:30; Status DC Potassium Chloride 100 ml @ 100 mls/hr PRN Q1HR PRN IV SEE COMMENTS; Start 02/28/17 at 10:30; Stop 03/01/17 at 17:07; Status DC Potassium Chloride 100 ml @ 100 mls/hr PRN Q1HR PRN IV SEE COMMENTS; Start 02/28/17 at 10:30; Stop 03/01/17 at 17:07; Status DC Potassium Chloride 100 ml @ 100 mls/hr PRN Q1HR PRN IV SEE COMMENTS; Start 02/28/17 at 10:30; Stop 03/01/17 at 17:07; Status DC Insulin Human Regular (Novolin R Iv Drip) 150 ml @ 7.484 mls/ hr 1X ONCE IV Last administered on 02/28/17 11:11; Start 02/28/17 at 10:30; Stop 03/01/17 at 17: 08; Status DC Morphine Sulfate 4 mg 4 mg PRN Q2HR PRN IV PAIN Last administered on 03/02/17 06:13; Start 02/28/17 at 12:00 Multivitamins/ Thiamine HCl/ Folic Acid/Sodium Chloride (Infuvite Adult/ Iv Sodium Chloride 0.9% 1000ml Bag) 1,011.2 ml @ 100 mls/ hr 1X ONCE IV Last administered on 02/28/17 16:13; Start 02/28/17 at 16:00; Stop 03/01/17 at 02:06; Status DC Multivitamins (Thera M Plus) 1 tab DAILY PO Last administered on 03/02/17 08:50 ; Start 03/01/17 at 09:00 Folic Acid (Folic Acid) 1 mg DAILY PO Last administered on 03/02/17 08:50; Start 03/01/17 at 09:00 Lorazepam (Ativan) 2 mg PRN Q1HR PRN IV For CIWA 8-14 Last administered on 21:59; Start 02/28/17 at 15:00 Lorazepam (Ativan) 4 mg PRN Q1HR PRN IV For CIWA 15 or greater; Start 02/28/17 at 15:00 Diazepam (Valium) 5 mg PRN Q6HRS PRN IV SEIZURES; Start 02/28/17 at 15:00 Pantoprazole Sodium (Protonix Vial) 40 mg DAILYAC IVP Last administered on 08:49; Start 02/28/17 at 16:30 Thiamine HCl (Vitamin B-1) 100 mg DAILY PO Last administered on 03/02/17 08:50 ; Start 03/01/17 at 09:00 Octreotide Acetate 100 mcg 100 mcg Q8HRS SQ Last administered on 03/02/17 06:07 ; Start 02/28/17 at 22:00 Potassium Chloride 100 ml @ 100 mls/hr Q1H IV Last administered on 02/28/17 22 :43; Start 02/28/17 at 19:30; Stop 02/28/17 at 23:29; Status DC Sodium Phosphate/ Dextrose 256.6667 ml @ 62.5 mls/hr 1X PRN PRN IV SEE COMMENTS Last administered on 02/28/17 19:34; Start 02/28/17 at 19:30; Stop at 17:08; Status DC Ondansetron HCl (Zofran) 4 mg PRN Q6HRS PRN IV NAUSEA/VOMITING Last administered on 02/28/17 22:54; Start 02/28/17 at 20:45 Acetaminophen (Tylenol) 500 mg PRN Q6HRS PRN PO MILD PAIN / TEMP; Start at 20:45 Sodium Bicarbonate 100 meq 100 meq 1X ONCE IV Last administered on 02/28/17 21 :35; Start 02/28/17 at 21:00; Stop 02/28/17 at 21:01; Status DC Magnesium Sulfate/ Dextrose 100 ml @ 25 mls/hr DAILY IV Last administered on 08:21; Start 03/01/17 at 02:30; Stop 03/01/17 at 17:08; Status DC Sodium Phosphate 40 mmol/Sodium Chloride 513.3333 ml @ 83.3 mls/hr 1X PRN PRN IV SEE COMMENTS Last administered on 03/01/17 03:20; Start 03/01/17 at 02:30; Stop 03/01/17 at 17:08; Status DC Potassium Chloride 100 ml @ 100 mls/hr Q1H IV Last administered on 03/01/17 08 :23; Start 03/01/17 at 02:30; Stop 03/01/17 at 08:29; Status DC Dextrose/Sodium Chloride 1,000 ml @ 250 mls/hr Q4H IV Last administered on 03/01 05:52; Start 03/01/17 at 05:45; Stop 03/01/17 at 08:30; Status DC Potassium Phosphate 13.6 mmol/Sodium Chloride 104.5333 ml @ 52.267 m... Q2H IV Last administered on 03/01/17 14:01; Start 03/01/17 at 09:00; Stop 03/01/17 at 12:59; Status DC Sodium Chloride/ Sodium Bicarbonate/ Sterile Water (Sodium Chloride/ Water) 1, 059.6875 ml @ 125 mls/hr 1X ONCE IV ; Start 03/01/17 at 10:00; Stop 03/01/17 at 18:28; Status Cancel Fentanyl Citrate (Fentanyl 2ml Vial) 50 mcg PRN Q2HR PRN IV PAIN Last administered on 03/02/17 11:41; Start 03/01/17 at 09:30 Heparin Sodium (Porcine) 5,000 unit Q8HRS SQ Last administered on 03/02/17 06: 10; Start 03/01/17 at 14:00 Insulin Detemir (Levemir) 30 units BID SQ Last administered on 03/02/17 08:57; Start 03/01/17 at 10:30 Insulin Aspart 20 units 20 units QID SQ ; Start 03/01/17 at 13:00; Stop 03/01/17 at 17:08; Status DC Potassium Chloride (KCl Premix 10meq) 100 ml @ 100 mls/hr Q1H IV Last administered on 03/01/17 14:45; Start 03/01/17 at 11:00; Stop 03/01/17 at 14:59; Status DC Dextrose (Dextrose 50%-Water Syringe) 25 gm STK-MED ONCE IV ; Start 03/01/17 at 11:21; Stop 03/01/17 at 11:22; Status DC Insulin Aspart (Novolog) 0-5 UNITS TIDWMEALS SQ ; Start 03/02/17 at 08:00; Stop 03/02/17 at 08:00; Status DC Dextrose 12.5 gm 12.5 gm PRN Q15MIN PRN IV SEE COMMENTS; Start 03/01/17 at 17:15 Sodium Chloride (Iv Sodium Chloride 0.9% 1000ml Bag) 1,000 ml @ 150 mls/hr Q6H40M IV ; Start 03/01/17 at 17:15; Stop 03/01/17 at 20:46; Status DC Insulin Aspart 0-5 UNITS Q6HRS SQ ; Start 03/02/17 at 00:00 Potassium Chloride 30 meq/ Sodium Chloride 1,015 ml @ 150 mls/hr Q6H46M IV Last administered on 03/02/17 04:43; Start 03/01/17 at 22:00; Stop 03/02/17 at 11: 39; Status DC Potassium Chloride 100 ml @ 100 mls/hr Q1H IV Last administered on 03/02/17 12 :59; Start 03/02/17 at 09:00; Stop 03/02/17 at 12:59; Status DC Potassium Chloride/Sodium Chloride (KCl 20 Meq-NS 1,000 ml Iv Soln) 1,000 ml @ 150 mls/hr Q6H40M IV ; Start 03/02/17 at 13:00 Active Scripts Active Reported Captopril 12.5 Mg Tablet 10 Mg PO DAILY Famotidine 20 Mg Tablet 20 Mg PO BID Metformin Hcl 1,000 Mg Tablet 1 Tab PO BID Vitals/I & O Vital Sign - Last 24 Hours 03/01/17 03/01/17 03/01/17 03/01/17 14:44 15:00 18:02 18:28 Temp 100.2 100.2 Pulse 100 Resp 17 B/P 112/69 Pulse Ox 95 96 95 95 O2 Delivery Room Air Nasal Cannula Room Air Room Air O2 Flow Rate 2.0 2.0 2.0 03/01/17 03/01/17 03/01/17 03/02/17 19:00 20:00 22:49 03:02 Temp 97.9 98.5 98.5 97.9 98.5 98.5 Pulse 98 93 97 Resp B/P 114/79 108/67 110/71 Pulse Ox 100 95 95 O2 Delivery Nasal Cannula Room Air Nasal Cannula Room Air O2 Flow Rate 2.0 2.0 03/02/17 03/02/17 03/02/17 03/02/17 07:22 08:03 11:31 11:41 Temp 98.1 98.2 98.1 98.2 Pulse 95 98 Resp B/P 146/94 151/91 Pulse Ox 98 95 O2 Delivery Room Air Room Air Room Air Room Air 03/02/17 12:17 O2 Delivery Room Air Intake and Output 03/01/17 03/01/17 03/02/17 15:00 23:00 07:00 Intake Total 0 ml Output Total 2300 ml 5675 ml Balance -2300 ml -5675 ml SHAHRIAR LOFTON MD Mar 02, 2017 13:20
[2017-03-02 15:00] VITALS: BP 119/78
[2017-03-02 19:00] VITALS: BP 131/93
[2017-03-02 23:00] VITALS: BP 133/85
[2017-03-03] VITALS (7 sets, daily range): BP systolic 124–144; BP diastolic 75–100
[2017-03-03] MEDS: MORPHINE SULFATE 4 MG/ML DISP.SYRIN. IV PRN ×4 (00:46→22:41)
[2017-03-03] MEDS: INSULIN ASPART 300 UNITS/3 ML INSULN.PEN SQ SCH ×4 (00:50→17:43)
[2017-03-03 05:23] LABS: BASO # 0.1 x10^3/uL (0.0-0.2); BASO % 1 % (0-3); EOS % 2 % (0-3); HEMATOCRIT 36.1 % (39.0-53.0); HEMOGLOBIN 12.6 g/dL (13.0-17.5); LYMPH # 3.3 x10^3/uL (1.0-4.8); LYMPH % 46 % (24-48); MEAN CORPUSCULAR HEMOGLOBIN 28 pg (25-35); MEAN CORPUSCULAR HGB CONC 35 g/dL (31-37); MEAN CORPUSCULAR VOLUME 81 fL (79-100); MONO % 5 % (0-9); NEUT % 46 % (31-73); PLATELET COUNT 112 x10^3/uL (140-400); RED BLOOD COUNT 4.47 x10^6/uL (4.30-5.70); RED CELL DISTRIBUTION WIDTH 14.2 % (11.5-14.5); WHITE BLOOD COUNT 7.2 x10^3/uL (4.0-11.0)
[2017-03-03] MEDS: OCTREOTIDE 100 MCG/ML VIAL SQ SCH ×3 (05:52→21:18)
[2017-03-03] MEDS: HEPARIN PF for SUB-Q USE 5,000 UNIT/0.5 ML VIAL. SQ SCH ×3 (05:58→21:34)
[2017-03-03 06:27] LABS: CALCIUM 9.1 mg/dL (8.5-10.1); CREATININE 0.8 mg/dL (0.7-1.3); GFR 105.5
[2017-03-03 06:29] LABS: POTASSIUM 2.5 mmol/L (3.5-5.1)
[2017-03-03 06:58] LABS: TRIGLYCERIDES 4830 mg/dL (0-150)
[2017-03-03] MEDS ORDERED: POTASSIUM CHLORIDE 20 MEQ TABLET.ER. PO ONE ×2 (07:00→12:30)
[2017-03-03 07:46] LABS: % EOS 2 % (0-5)
[2017-03-03 07:47] LABS: PLT ESTIMATE DECREASED (ADEQUATE)
[2017-03-03] MEDS: PANTOPRAZOLE IV PUSH 40 MG VIAL. IVP SCH (07:53)
[2017-03-03] MEDS: FOLIC ACID 1 MG TABLET. PO SCH (07:58)
[2017-03-03] MEDS: THIAMINE 100 MG TABLET. PO SCH (07:58)
[2017-03-03] MEDS: MULTIVITAMIN with MINERAL TABLET. PO SCH (07:58)
[2017-03-03] MEDS: INSULIN DETEMIR 300 UNITS/3 ML INSULN.PEN. SQ SCH ×2 (08:06→21:33)
[2017-03-03] MEDS: FENTANYL PF 100 MCG/2 ML VIAL. IV PRN ×2 (09:41→23:28)
[2017-03-03] MEDS: POTASSIUM CHLORIDE 10MEQ 100 ML IV SCH ×2 (12:23→13:36)
--- NOTE | 2017-03-03 12:57 | PDOC ---
PROGRESS NOTES Chief Complaint Chief Complaint SEVERE Acute alcoholic pancreatitis DKA POA, hba1c 11 EtOHism, heavy Obesity SIRS POA, no sepsis MIld to mod pCM Thormbocytopenia mild GAp metabolic acidosis HYpokalemia with hypophosphatemia plan: fu with gi cont ivf, decrease to 75cc/h levemir 30u bid, ssi advance to full liquid fu labs , lipase daily replete K gi, dvt ppx dc tmr History of Present Illness History of Present Illness still abd pain, LLQ, 6/10, better tho lipase normal no BM npo, got levemir yesterday, glucose is ok still low k Vitals Vitals Vital Signs Date Time Temp Pulse Resp B/P Pulse Ox O2 Delivery O2 Flow Rate FiO2 03/03/17 10:32 98.3 83 20 124/82 93 Room Air 98.3 Physical Exam General: Alert, Oriented X3, moderate distress, severe distress Heart: Regular rate, Normal S1, Normal S2 Lungs: Clear Abdomen: Normal bowel sounds ( ), Soft, Other (Left abd moderate tenderness) Extremities: No clubbing, No edema, Normal pulses Skin: No breakdown Labs LABS Laboratory Tests Test 03/02/17 17:14 03/03/17 00:49 03/03/17 04:28 03/03/17 05:00 Glucose (Fingerstick) 181mg/dL (70-99) 225mg/dL (70-99) White Blood Count 7.2x10^3/uL (4.0-11.0) Red Blood Count 4.47x10^6/uL (4.30-5.70) Hemoglobin 12.6g/dL (13.0-17.5) Hematocrit 36.1% (39.0-53.0) Mean Corpuscular Volume 81fL (79-100) Mean Corpuscular Hemoglobin 28pg (25-35) Mean Corpuscular Hemoglobin Concent 35g/dL (31-37) Red Cell Distribution Width 14.2% (11.5-14.5) Platelet Count 112x10^3/uL (140-400) Neutrophils (%) (Auto) 46% (31-73) Lymphocytes (%) (Auto) 46% (24-48) Monocytes (%) (Auto) 5% (0-9) Eosinophils (%) (Auto) 2% (0-3) Basophils (%) (Auto) 1% (0-3) Neutrophils # (Auto) 3.3x10^3uL (1.8-7.7) Lymphocytes # (Auto) 3.3x10^3/uL (1.0-4.8) Monocytes # (Auto) 0.4x10^3/uL (0.0-1.1) Eosinophils # (Auto) 0.1x10^3/uL (0.0-0.7) Basophils # (Auto) 0.1x10^3/uL (0.0-0.2) Segmented Neutrophils % 62% (35-66) Band Neutrophils % 17% (0-9) Lymphocytes % 17% (24-48) Monocytes % 2% (0-10) Eosinophils % 2% (0-5) Platelet Estimate Decreased (ADEQUATE) Sodium Level 137mmol/L (136-145) Potassium Level 2.5mmol/L (3.5-5.1) Chloride Level 100mmol/L (98-107) Carbon Dioxide Level 28mmol/L (21-32) Anion Gap 9 (6-14) Blood Urea Nitrogen 4mg/dL (8-26) Creatinine 0.8mg/dL (0.7-1.3) Estimated GFR (Cockcroft-Gault) 105.5 Glucose Level 189mg/dL (70-99) Calcium Level 9.1mg/dL (8.5-10.1) Lipase 304U/L (73-393) Magnesium Level 2.1mg/dL (1.8-2.4) Test 03/03/17 05:51 03/03/17 08:02 03/03/17 11:57 Glucose (Fingerstick) 152mg/dL (70-99) 113mg/dL (70-99) 145mg/dL (70-99) Review of Systems Review of Systems no fever, chills, sob or chest pain Assessment and Plan Assessmemt and Plan Problems Medical Problems: (1) DKA (diabetic ketoacidosis) Status: Acute Problems: Comment Review of Relevant I have reviewed the following items sharla (where applicable) has been applied. Labs Laboratory Tests Test 03/01/17 13:56 03/01/17 18:05 03/01/17 18:21 03/01/17 20:11 Glucose (Fingerstick) 159mg/dL (70-99) 196mg/dL (70-99) 190mg/dL (70-99) Sodium Level 133mmol/L (136-145) Potassium Level 3.0mmol/L (3.5-5.1) Chloride Level 98mmol/L (98-107) Carbon Dioxide Level 13mmol/L (21-32) Anion Gap 22 (6-14) Blood Urea Nitrogen 8mg/dL (8-26) Creatinine 1.4mg/dL (0.7-1.3) Estimated GFR (Cockcroft-Gault) 55.3 Glucose Level 231mg/dL (70-99) Calcium Level 8.2mg/dL (8.5-10.1) Phosphorus Level 3.8mg/dL (2.6-4.7) Magnesium Level 2.9mg/dL (1.8-2.4) Test 03/02/17 00:16 03/02/17 06:02 03/02/17 07:19 03/02/17 11:58 Glucose (Fingerstick) 193mg/dL (70-99) 147mg/dL (70-99) 121mg/dL (70-99) White Blood Count 9.2x10^3/uL (4.0-11.0) Red Blood Count 4.40x10^6/uL (4.30-5.70) Hemoglobin 12.0g/dL (13.0-17.5) Hematocrit 35.8% (39.0-53.0) Mean Corpuscular Volume 81fL (79-100) Mean Corpuscular Hemoglobin 27pg (25-35) Mean Corpuscular Hemoglobin Concent 33g/dL (31-37) Red Cell Distribution Width 13.8% (11.5-14.5) Platelet Count 102x10^3/uL (140-400) Neutrophils (%) (Auto) 56% (31-73) Lymphocytes (%) (Auto) 39% (24-48) Monocytes (%) (Auto) 4% (0-9) Eosinophils (%) (Auto) 1% (0-3) Basophils (%) (Auto) 1% (0-3) Neutrophils # (Auto) 5.1x10^3uL (1.8-7.7) Lymphocytes # (Auto) 3.6x10^3/uL (1.0-4.8) Monocytes # (Auto) 0.3x10^3/uL (0.0-1.1) Eosinophils # (Auto) 0.1x10^3/uL (0.0-0.7) Basophils # (Auto) 0.1x10^3/uL (0.0-0.2) Sodium Level 136mmol/L (136-145) Potassium Level 2.9mmol/L (3.5-5.1) Chloride Level 102mmol/L (98-107) Carbon Dioxide Level 20mmol/L (21-32) Anion Gap 14 (6-14) Blood Urea Nitrogen 10mg/dL (8-26) Creatinine 1.2mg/dL (0.7-1.3) Estimated GFR (Cockcroft-Gault) 66.1 Glucose Level 164mg/dL (70-99) Calcium Level 8.9mg/dL (8.5-10.1) Phosphorus Level 2.6mg/dL (2.6-4.7) Magnesium Level 2.7mg/dL (1.8-2.4) Lipase 537U/L (73-393) Test 03/02/17 17:14 03/03/17 00:49 03/03/17 04:28 03/03/17 05:00 Glucose (Fingerstick) 181mg/dL (70-99) 225mg/dL (70-99) White Blood Count 7.2x10^3/uL (4.0-11.0) Red Blood Count 4.47x10^6/uL (4.30-5.70) Hemoglobin 12.6g/dL (13.0-17.5) Hematocrit 36.1% (39.0-53.0) Mean Corpuscular Volume 81fL (79-100) Mean Corpuscular Hemoglobin 28pg (25-35) Mean Corpuscular Hemoglobin Concent 35g/dL (31-37) Red Cell Distribution Width 14.2% (11.5-14.5) Platelet Count 112x10^3/uL (140-400) Neutrophils (%) (Auto) 46% (31-73) Lymphocytes (%) (Auto) 46% (24-48) Monocytes (%) (Auto) 5% (0-9) Eosinophils (%) (Auto) 2% (0-3) Basophils (%) (Auto) 1% (0-3) Neutrophils # (Auto) 3.3x10^3uL (1.8-7.7) Lymphocytes # (Auto) 3.3x10^3/uL (1.0-4.8) Monocytes # (Auto) 0.4x10^3/uL (0.0-1.1) Eosinophils # (Auto) 0.1x10^3/uL (0.0-0.7) Basophils # (Auto) 0.1x10^3/uL (0.0-0.2) Segmented Neutrophils % 62% (35-66) Band Neutrophils % 17% (0-9) Lymphocytes % 17% (24-48) Monocytes % 2% (0-10) Eosinophils % 2% (0-5) Platelet Estimate Decreased (ADEQUATE) Sodium Level 137mmol/L (136-145) Potassium Level 2.5mmol/L (3.5-5.1) Chloride Level 100mmol/L (98-107) Carbon Dioxide Level 28mmol/L (21-32) Anion Gap 9 (6-14) Blood Urea Nitrogen 4mg/dL (8-26) Creatinine 0.8mg/dL (0.7-1.3) Estimated GFR (Cockcroft-Gault) 105.5 Glucose Level 189mg/dL (70-99) Calcium Level 9.1mg/dL (8.5-10.1) Lipase 304U/L (73-393) Magnesium Level 2.1mg/dL (1.8-2.4) Test 03/03/17 05:51 03/03/17 08:02 03/03/17 11:57 Glucose (Fingerstick) 152mg/dL (70-99) 113mg/dL (70-99) 145mg/dL (70-99) Laboratory Tests Test 03/02/17 17:14 03/03/17 00:49 03/03/17 04:28 03/03/17 05:00 Glucose (Fingerstick) 181mg/dL (70-99) 225mg/dL (70-99) White Blood Count 7.2x10^3/uL (4.0-11.0) Red Blood Count 4.47x10^6/uL (4.30-5.70) Hemoglobin 12.6g/dL (13.0-17.5) Hematocrit 36.1% (39.0-53.0) Mean Corpuscular Volume 81fL (79-100) Mean Corpuscular Hemoglobin 28pg (25-35) Mean Corpuscular Hemoglobin Concent 35g/dL (31-37) Red Cell Distribution Width 14.2% (11.5-14.5) Platelet Count 112x10^3/uL (140-400) Neutrophils (%) (Auto) 46% (31-73) Lymphocytes (%) (Auto) 46% (24-48) Monocytes (%) (Auto) 5% (0-9) Eosinophils (%) (Auto) 2% (0-3) Basophils (%) (Auto) 1% (0-3) Neutrophils # (Auto) 3.3x10^3uL (1.8-7.7) Lymphocytes # (Auto) 3.3x10^3/uL (1.0-4.8) Monocytes # (Auto) 0.4x10^3/uL (0.0-1.1) Eosinophils # (Auto) 0.1x10^3/uL (0.0-0.7) Basophils # (Auto) 0.1x10^3/uL (0.0-0.2) Segmented Neutrophils % 62% (35-66) Band Neutrophils % 17% (0-9) Lymphocytes % 17% (24-48) Monocytes % 2% (0-10) Eosinophils % 2% (0-5) Platelet Estimate Decreased (ADEQUATE) Sodium Level 137mmol/L (136-145) Potassium Level 2.5mmol/L (3.5-5.1) Chloride Level 100mmol/L (98-107) Carbon Dioxide Level 28mmol/L (21-32) Anion Gap 9 (6-14) Blood Urea Nitrogen 4mg/dL (8-26) Creatinine 0.8mg/dL (0.7-1.3) Estimated GFR (Cockcroft-Gault) 105.5 Glucose Level 189mg/dL (70-99) Calcium Level 9.1mg/dL (8.5-10.1) Lipase 304U/L (73-393) Magnesium Level 2.1mg/dL (1.8-2.4) Test 03/03/17 05:51 03/03/17 08:02 03/03/17 11:57 Glucose (Fingerstick) 152mg/dL (70-99) 113mg/dL (70-99) 145mg/dL (70-99) Medications Current Medications Morphine Sulfate 4 mg PRN Q15MIN PRN IV/SQ PAIN GREATER THAN 3/10 Last administered on 02/28/17 16:08; Start 02/28/17 at 08:30; Stop 02/28/17 at 16:29; Status DC Ondansetron HCl 4 mg 4 mg 1X ONCE IV Last administered on 02/28/17 08:42; Start 02/28/17 at 09:00; Stop 02/28/17 at 09:01; Status DC Sodium Chloride 1,000 ml @ 1,000 mls/hr 1X ONCE IV Last administered on 09:44; Start 02/28/17 at 09:00; Stop 02/28/17 at 09:59; Status DC Sodium Chloride 1,000 ml @ 1,000 mls/hr 1X ONCE IV Last administered on 08:42; Start 02/28/17 at 08:45; Stop 02/28/17 at 09:44; Status DC Sodium Chloride 1,000 ml @ 1,000 mls/hr Q1H IV Last administered on 02/28/17 11:12; Start 02/28/17 at 10:30; Stop 02/28/17 at 10:33; Status DC Sodium Chloride 1,000 ml @ 500 mls/hr Q2H IV ; Start 02/28/17 at 11:30; Stop 02/28/17 at 13:30; Status DC Sodium Chloride 1,000 ml @ 150 mls/hr Q6H40M IV ; Start 02/28/17 at 13:30; Stop 03/01/17 at 17:09; Status DC Sodium Chloride 1,000 ml @ 250 mls/hr Q4H IV ; Start 02/28/17 at 13:30; Stop 03/01/17 at 08:30; Status DC Dextrose/Sodium Chloride 1,000 ml @ 250 mls/hr Q4H IV Last administered on 03/01 02:04; Start 02/28/17 at 13:30; Stop 03/01/17 at 08:30; Status DC Insulin Human Regular 150 unit/ Sodium Chloride 151.5 ml @ 0 mls/hr CONT PRN PRN IV PER PROTOCOL Last administered on 02/28/17 22:49; Start 02/28/17 at 10:30 ; Stop 03/01/17 at 08:30; Status DC Potassium Chloride 100 ml @ 100 mls/hr PRN Q1HR PRN IV SEE COMMENTS; Start 02/28/17 at 10:30; Stop 03/01/17 at 17:07; Status DC Potassium Chloride 100 ml @ 100 mls/hr PRN Q1HR PRN IV SEE COMMENTS; Start 02/28/17 at 10:30; Stop 03/01/17 at 17:07; Status DC Potassium Chloride 100 ml @ 100 mls/hr PRN Q1HR PRN IV SEE COMMENTS; Start 02/28/17 at 10:30; Stop 03/01/17 at 17:07; Status DC Insulin Human Regular (Novolin R Iv Drip) 150 ml @ 7.484 mls/ hr 1X ONCE IV Last administered on 02/28/17 11:11; Start 02/28/17 at 10:30; Stop 03/01/17 at 17: 08; Status DC Morphine Sulfate 4 mg 4 mg PRN Q2HR PRN IV PAIN Last administered on 03/03/17 04:56; Start 02/28/17 at 12:00 Multivitamins/ Thiamine HCl/ Folic Acid/Sodium Chloride (Infuvite Adult/ Iv Sodium Chloride 0.9% 1000ml Bag) 1,011.2 ml @ 100 mls/ hr 1X ONCE IV Last administered on 02/28/17 16:13; Start 02/28/17 at 16:00; Stop 03/01/17 at 02:06; Status DC Multivitamins (Thera M Plus) 1 tab DAILY PO Last administered on 03/03/17 07:58 ; Start 03/01/17 at 09:00 Folic Acid (Folic Acid) 1 mg DAILY PO Last administered on 03/03/17 07:58; Start 03/01/17 at 09:00 Lorazepam (Ativan) 2 mg PRN Q1HR PRN IV For CIWA 8-14 Last administered on 21:59; Start 02/28/17 at 15:00 Lorazepam (Ativan) 4 mg PRN Q1HR PRN IV For CIWA 15 or greater; Start 02/28/17 at 15:00 Diazepam (Valium) 5 mg PRN Q6HRS PRN IV SEIZURES; Start 02/28/17 at 15:00 Pantoprazole Sodium (Protonix Vial) 40 mg DAILYAC IVP Last administered on 07:53; Start 02/28/17 at 16:30 Thiamine HCl (Vitamin B-1) 100 mg DAILY PO Last administered on 03/03/17 07:58 ; Start 03/01/17 at 09:00 Octreotide Acetate 100 mcg 100 mcg Q8HRS SQ Last administered on 03/03/17 05:52 ; Start 02/28/17 at 22:00 Potassium Chloride 100 ml @ 100 mls/hr Q1H IV Last administered on 02/28/17 22 :43; Start 02/28/17 at 19:30; Stop 02/28/17 at 23:29; Status DC Sodium Phosphate/ Dextrose 256.6667 ml @ 62.5 mls/hr 1X PRN PRN IV SEE COMMENTS Last administered on 02/28/17 19:34; Start 02/28/17 at 19:30; Stop at 17:08; Status DC Ondansetron HCl (Zofran) 4 mg PRN Q6HRS PRN IV NAUSEA/VOMITING Last administered on 02/28/17 22:54; Start 02/28/17 at 20:45 Acetaminophen (Tylenol) 500 mg PRN Q6HRS PRN PO MILD PAIN / TEMP; Start at 20:45 Sodium Bicarbonate 100 meq 100 meq 1X ONCE IV Last administered on 02/28/17 21 :35; Start 02/28/17 at 21:00; Stop 02/28/17 at 21:01; Status DC Magnesium Sulfate/ Dextrose 100 ml @ 25 mls/hr DAILY IV Last administered on 08:21; Start 03/01/17 at 02:30; Stop 03/01/17 at 17:08; Status DC Sodium Phosphate 40 mmol/Sodium Chloride 513.3333 ml @ 83.3 mls/hr 1X PRN PRN IV SEE COMMENTS Last administered on 03/01/17 03:20; Start 03/01/17 at 02:30; Stop 03/01/17 at 17:08; Status DC Potassium Chloride 100 ml @ 100 mls/hr Q1H IV Last administered on 03/01/17 08 :23; Start 03/01/17 at 02:30; Stop 03/01/17 at 08:29; Status DC Dextrose/Sodium Chloride 1,000 ml @ 250 mls/hr Q4H IV Last administered on 03/01 05:52; Start 03/01/17 at 05:45; Stop 03/01/17 at 08:30; Status DC Potassium Phosphate 13.6 mmol/Sodium Chloride 104.5333 ml @ 52.267 m... Q2H IV Last administered on 03/01/17 14:01; Start 03/01/17 at 09:00; Stop 03/01/17 at 12:59; Status DC Sodium Chloride/ Sodium Bicarbonate/ Sterile Water (Sodium Chloride/ Water) 1, 059.6875 ml @ 125 mls/hr 1X ONCE IV ; Start 03/01/17 at 10:00; Stop 03/01/17 at 18:28; Status Cancel Fentanyl Citrate (Fentanyl 2ml Vial) 50 mcg PRN Q2HR PRN IV PAIN Last administered on 03/03/17 09:41; Start 03/01/17 at 09:30 Heparin Sodium (Porcine) 5,000 unit Q8HRS SQ Last administered on 03/03/17 05: 58; Start 03/01/17 at 14:00 Insulin Detemir (Levemir) 30 units BID SQ Last administered on 03/03/17 08:06; Start 03/01/17 at 10:30 Insulin Aspart 20 units 20 units QID SQ ; Start 03/01/17 at 13:00; Stop 03/01/17 at 17:08; Status DC Potassium Chloride (KCl Premix 10meq) 100 ml @ 100 mls/hr Q1H IV Last administered on 03/01/17 14:45; Start 03/01/17 at 11:00; Stop 03/01/17 at 14:59; Status DC Dextrose (Dextrose 50%-Water Syringe) 25 gm STK-MED ONCE IV ; Start 03/01/17 at 11:21; Stop 03/01/17 at 11:22; Status DC Insulin Aspart (Novolog) 0-5 UNITS TIDWMEALS SQ ; Start 03/02/17 at 08:00; Stop 03/02/17 at 08:00; Status DC Dextrose 12.5 gm 12.5 gm PRN Q15MIN PRN IV SEE COMMENTS; Start 03/01/17 at 17:15 Sodium Chloride (Iv Sodium Chloride 0.9% 1000ml Bag) 1,000 ml @ 150 mls/hr Q6H40M IV ; Start 03/01/17 at 17:15; Stop 03/01/17 at 20:46; Status DC Insulin Aspart 0-5 UNITS Q6HRS SQ Last administered on 03/02/17 18:22; Start at 00:00 Potassium Chloride 30 meq/ Sodium Chloride 1,015 ml @ 150 mls/hr Q6H46M IV Last administered on 03/02/17 04:43; Start 03/01/17 at 22:00; Stop 03/02/17 at 11: 39; Status DC Potassium Chloride 100 ml @ 100 mls/hr Q1H IV Last administered on 03/02/17 13 :40; Start 03/02/17 at 09:00; Stop 03/02/17 at 12:59; Status DC Potassium Chloride/Sodium Chloride (KCl 20 Meq-NS 1,000 ml Iv Soln) 1,000 ml @ 150 mls/hr Q6H40M IV Last administered on 03/03/17 04:57; Start 03/02/17 at 13: 00 Potassium Chloride (Klor-Con) 40 meq 1X ONCE PO Last administered on 03/03/17 07:53; Start 03/03/17 at 07:00; Stop 03/03/17 at 07:01; Status DC Potassium Chloride 40 meq 40 meq 1X ONCE PO Last administered on 03/03/17 12: 23; Start 03/03/17 at 12:30; Stop 03/03/17 at 12:31; Status DC Potassium Chloride (KCl Premix 10meq) 100 ml @ 100 mls/hr Q1H IV Last administered on 03/03/17 12:23; Start 03/03/17 at 13:00; Stop 03/03/17 at 14:59 Active Scripts Active Reported Captopril 12.5 Mg Tablet 10 Mg PO DAILY Famotidine 20 Mg Tablet 20 Mg PO BID Metformin Hcl 1,000 Mg Tablet 1 Tab PO BID Vitals/I & O Vital Sign - Last 24 Hours 03/02/17 03/02/17 03/02/17 03/02/17 13:50 15:00 18:31 19:00 Temp 99.2 98.5 99.2 98.5 Pulse 91 94 Resp 16 21 B/P 119/78 131/93 Pulse Ox 96 92 O2 Delivery Room Air Room Air Room Air Room Air 03/02/17 03/02/17 03/02/17 03/03/17 20:00 22:23 23:00 00:46 Temp 98.7 98.7 Pulse 89 Resp 20 B/P 133/85 Pulse Ox 94 O2 Delivery Room Air Room Air Room Air Room Air 03/03/17 03/03/17 03/03/17 03/03/17 03:00 04:56 05:26 07:33 Temp 98.7 98.3 98.7 98.3 Pulse 81 77 Resp 20 20 B/P 131/75 127/87 Pulse Ox 93 95 O2 Delivery Room Air Room Air Room Air Room Air 03/03/17 03/03/17 03/03/17 03/03/17 07:58 09:41 10:21 10:32 Temp 98.3 98.3 Pulse 83 Resp 20 B/P 124/82 Pulse Ox 93 O2 Delivery Room Air Room Air Room Air Room Air Intake and Output 03/02/17 03/02/17 03/03/17 15:00 23:00 07:00 Intake Total 1558.51 ml 300 ml Output Total 200 ml 4775 ml Balance 1358.51 ml -4475 ml SHAHRIAR LOFTON MD Mar 03, 2017 12:57
[2017-03-04] MEDS: ONDANSETRON PF 4 MG/2 ML VIAL. IV PRN (01:10)
[2017-03-04] MEDS: LORAZEPAM 2 MG/ML VIAL. IV PRN (01:15)
[2017-03-04 03:00] VITALS: BP 121/85
[2017-03-04] MEDS: OCTREOTIDE 100 MCG/ML VIAL SQ SCH ×2 (05:46→14:19)
[2017-03-04] MEDS: HEPARIN PF for SUB-Q USE 5,000 UNIT/0.5 ML VIAL. SQ SCH ×2 (05:53→14:00)
[2017-03-04] MEDS: INSULIN ASPART 300 UNITS/3 ML INSULN.PEN SQ SCH ×3 (05:54→12:07)
[2017-03-04 07:00] VITALS: BP 141/93
[2017-03-04] MEDS ORDERED: PANTOPRAZOLE 40 MG TABLET.DR. PO SCH (07:30)
[2017-03-04 07:43] LABS: CALCIUM 9.2 mg/dL (8.5-10.1); CREATININE 0.7 mg/dL (0.7-1.3); GFR 123.1
[2017-03-04 07:45] LABS: POTASSIUM 2.6 mmol/L (3.5-5.1)
[2017-03-04] MEDS: THIAMINE 100 MG TABLET. PO SCH (08:47)
[2017-03-04] MEDS: FOLIC ACID 1 MG TABLET. PO SCH (08:47)
[2017-03-04] MEDS: MULTIVITAMIN with MINERAL TABLET. PO SCH (08:47)
[2017-03-04] MEDS: POTASSIUM CHLORIDE 10MEQ 100 ML IV SCH ×4 (08:48→12:04)
[2017-03-04] MEDS: INSULIN DETEMIR 300 UNITS/3 ML INSULN.PEN. SQ SCH (09:02)
[2017-03-04 10:40] VITALS: BP 125/90
[2017-03-04 14:40] VITALS: BP 133/93
[2017-03-04] MEDS ORDERED: INSU100I27 SQ (14:43)
[2017-03-04] MEDS ORDERED: HYDR-965 PO (14:43)
[2017-03-04] MEDS ORDERED: FENO54TA PO (14:53)
--- NOTE | 2017-03-04 16:28 | PDOC ---
Subjective: Subjective: Minimal epigastric pain, tolerating PO. Ready to DC. Objective: Vital Signs: Vital Signs Date Time Temp Pulse Resp B/P Pulse Ox O2 Delivery O2 Flow Rate FiO2 03/04/17 14:40 97.7 76 18 133/93 98 Room Air 97.7 Labs: Laboratory Tests Test 03/03/17 17:32 03/03/17 21:28 03/04/17 00:08 03/04/17 05:43 Glucose (Fingerstick) 250mg/dL (70-99) 246mg/dL (70-99) 221mg/dL (70-99) 77mg/dL (70-99) Test 03/04/17 11:55 Glucose (Fingerstick) 290mg/dL (70-99) PE: GEN: NAD LUNGS: CTAB HEART: RRR ABD: NABS, S/ND, mild epigastric discomfort NEURO/PSYCH: A & O 3 A/P: DKA - resolved Recurrent alcoholic pancreatitis Hypokalemia -per primary -- Pain improved, tolerating PO. DC per primary. Recommend alcohol abstinence. RAYA CULLEN Mar 04, 2017 16:27
[2017-03-04] MEDS: MORPHINE SULFATE 4 MG/ML DISP.SYRIN. IV PRN (16:33)
== END 2017-03-04 18:00 | disposition home or self-care (01) | DRG 438 ==
LOC: ER 08:14 → 1 WEST ICU 11:00 → 6 SOUTH 03-01 18:28
PROVIDERS: ADMIT Internal Medicine; ATTEND Internal Medicine
DX: K85.20 Alcohol induced acute pancreatitis without necrosis or infection (principal); E13.10 Other specified diabetes mellitus with ketoacidosis without coma; N17.0 Acute kidney failure with tubular necrosis; R65.10 Systemic inflammatory response syndrome (SIRS) of non-infectious origin without acute organ dysfunction; E44.0 Moderate protein-calorie malnutrition; D69.6 Thrombocytopenia, unspecified; E66.9 Obesity, unspecified; Z68.31 Body mass index [BMI] 31.0-31.9, adult; E83.39 Other disorders of phosphorus metabolism; E87.6 Hypokalemia; F10.20 Alcohol dependence, uncomplicated; I10 Essential (primary) hypertension; Z90.49 Acquired absence of other specified parts of digestive tract; Z91.19 Patient's noncompliance with other medical treatment and regimen
CPT/HCPCS: 36415; 36600; 74022; 74176; 80048; 80053; 80061; 80076; 81001; 82553; 82805; 82947; 83036; 83690; 83735; 84100; 84484; 85007; 85027; 85610; 85730; 87641; 93005; 96361; 96365; 96375; C9113; J1815; J2060; J2270; J2354; J2405; J3010; J3475; J3480; J7030; J7040; J7042; 99285-25